=== PATIENT | female | born 1925 | race Caucasian/White ===

== ENCOUNTER 2016-07-19 17:56 | Inpatient (IN) | payer MEDICARE, BC ==
[2016-07-19] MEDS ORDERED: HYDROmorphone 2 MG/ML SDV IM ONE (18:04)
--- NOTE | 2016-07-19 18:08 | EDM.PDOC ---
ED HPI HEAD INJURY - General Chief Complaint: Trauma Stated Complaint: FALL, FACIAL INJURIES Time Seen by Provider: 07/19/16 18:00 Source: Reports: Patient, EMS, EMS notes reviewed History Limitations: Reports: No limitations - History of Present Illness INITIAL COMMENTS - FREE TEXT/NARRATIVE: Elisabeth lost her balance at 3 pm this afternoon, falling against a fixture on the wall, striking the L face. There was no LOC. There has been progressive swelling and discoloration of the L periorbital tissues, possibly secondary to Plavix. 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 She summoned EMS who transferred to [facility] ED for assessment. - Related Data Allergies/ADRs: Allergies Allergy/AdvReac Type Severity Reaction Status Date / Time No Known Allergies Allergy Verified 07/19/16 18:05 Home Meds: Home Meds ALPRAZolam [Alprazolam] 0.25 mg PO BID PRN 11/04/15 [History] Aspirin [Ecotrin] 81 mg PO DAILY 11/04/15 [History] Clopidogrel Bisulfate [Clopidogrel] 75 mg PO DAILY 11/04/15 [History] Cranberry Conc/Ascorbic Acid [Cranberry Plus Vitamin C Sftgl] 300 mg PO DAILY [History] Insulin Glarg,Human.Rec.Analog [LantUS Solostar] 25 unit SUBCUT BEDTIME [History] Lisinopril 15 mg PO DAILY 11/04/15 [History] Metoprolol Tartrate 25 mg PO BID 11/04/15 [History] Omeprazole 20 mg PO DAILY 11/04/15 [History] traMADol [Ultram] 50 - 100 mg PO BID 11/04/15 [History] Acetaminophen/HYDROcodone [[place] 325-5 MG] 1 tab PO Q4HR PRN 07/19/16 [History] FLUoxetine HCl [Fluoxetine] 1 tab PO DAILY 07/19/16 [History] Ferrous Sulfate [Iron] 325 mg PO DAILY 07/19/16 [History] Methylcellulose (with Sugar) [Citrucel] 454 gm PO DAILY 07/19/16 [History] Multivitamin [Multi-Vitamin Daily] 1 each PO DAILY 07/19/16 [History] Nitroglycerin [Nitrostat] 0.4 mg SL ASDIRECTED PRN 07/19/16 [History] Polyethylene Glycol 3350 [Miralax] 17 gm PO DAILY 07/19/16 [History] Past Medical History HEENT History: Reports: Impaired vision Cardiovascular History: Reports: High cholesterol, Hypertension, [place], Stents Gastrointestinal History: Reports: Chronic constipation Genitourinary History: Reports: UTI, recurrent [employer] History: Reports: Musculoskeletal History: Reports: Osteoarthritis Endocrine/Metabolic History: Reports: Diabetes, type II - Infectious Disease History Infectious Disease History: Reports: Chicken pox, Measles, Mumps - Past Surgical History Cardiovascular Surgical History: Reports: Carotid stents Social & Family History - Family History Family Medical History: Noncontributory - Tobacco Use Smoking Status *Q: Former Smoker Years of Tobacco use: 25 - Recreational Drug Use Recreational Drug Use: No ED ROS GENERAL - Review of Systems Review Of Systems: See Below Constitutional: Reports: malaise HEENT: Reports: Eye pain (left side) Respiratory: Reports: No Symptoms Cardiovascular: Reports: No symptoms Endocrine: Reports: no symptoms GI/Abdominal: Reports: No symptoms : Reports: no symptoms Musculoskeletal: Reports: other (L facial tenderness and pain ) Skin: Reports: bruising (L periorbital tissues) Neurological: Reports: Gait Disturbance (has lost balance and fallen in the past ) Psychiatric: Reports: No symptoms Hematologic/Lymphatic: Reports: easy bruising (Plavix) Immunologic: Reports: no symptoms ED EXAM, HEAD INJURY - Physical Exam Exam: See Below Exam Limited By: No limitations General Appearance: alert, WD/WN, mild distress Head: facial ecchymosis, facial swelling, facial tenderness Eyes: left eye: other (due to periorbital swelling and ecchymoses, unable to open lid for inspection of globe) Ears: normal external exam, hearing loss Nose: normal inspection, no blood Throat/Mouth: Normal inspection, Normal lips, Normal oropharynx, Normal voice Neck: non-tender, full range of motion, normal alignment, normal inspection Respiratory: lungs clear Cardiovascular: regular rate, rhythm, no murmur GI/Abdominal Exam (Abbreviated): normal bowel sounds, non tender, no organomegaly, no distention, no mass (Female) Exam: Deferred Rectal (Female) Exam: Deferred Back Exam: normal inspection Extremities: no evidence of injury Neurologic: no motor/sensory deficits, normal mood/affect, oriented x 3 Skin: Ecchymosis (L face) Course - Vital Signs Text/Narrative:: Following assessment at the [facility] ED, I administered Dilaudid 1 mg IM, and sent Elisabeth to [facility] for a Head Ct w orbits: preseptal hematoma noted , no fx seen, orbit appears intact; no intracranial trauma or bleeding identified; CBC noting Hgb 13.1 gm, WBC 16,900, plts 329,000; Na 124, K 3.9, Cl 93; BUN 16, Cr 0.7, nonFBS 219 mg%. Elisabeth has some clinical features for a concussion, with low Na and HBP and will be admitted for observation. Last Recorded V/S: Last Vital Signs Temp 36.9 C 07/19/16 17:56 Pulse 60 07/19/16 17:56 Resp 18 07/19/16 17:56 BP 255/79 H 07/19/16 17:56 Pulse Ox 98 07/19/16 17:56 - Orders/Labs/Meds Orders: Active Orders 24 hr Category Date Time Status Patient Status Manage Transfer [TRANSFER] Routine ADT 07/19/16 19:52 Ordered Cardiac Monitoring [RC] .As Directed Care 07/19/16 19:52 Ordered Head wo Cont [CT] Stat Exams 07/19/16 18:03 Taken Orbit Sella PF IAC w Cont [CT] Stat Exams 07/19/16 18:39 Taken URINALYSIS W/MICROSCOPIC [UA W/MICROSCOPIC] [URIN] Stat Lab 07/19/16 18:03 Uncollected Sodium Chloride 0.9% [Normal Saline] 1,000 ml Med 07/19/16 20:00 Active IV ASDIRECTED Sodium Chloride 0.9% [Saline Flush] Med 07/19/16 19:48 Active 10 ml FLUSH ASDIRECTED PRN Peripheral IV Insertion Adult [OM.PC] Routine Oth 07/19/16 19:48 Ordered Medication Orders Sodium Chloride (Normal Saline) 1,000 mls @ 150 mls/hr IV ASDIRECTED NAZIA Sodium Chloride (Saline Flush) 10 ml FLUSH ASDIRECTED PRN PRN Reason: Keep Vein Open Labs: Laboratory Tests 07/19/16 07/19/16 Range/Units 18:40 18:40 WBC 16.9 H (4.5-12.0) X10-3/uL RBC 4.44 (3.23-5.20) x10(6)uL Hgb 13.1 (11.5-15.5) g/dL Hct 39.7 (30.0-51.3) % MCV 89.6 (80-96) fL MCH 29.5 (27.7-33.6) pg MCHC 33.0 (32.2-35.4) g/dL RDW 13.9 (11.5-15.5) % Plt Count 329 (125-369) X10(3)uL MPV 7.1 L (7.4-10.4) fL Neut % (Auto) 84.2 H (46-82) % Lymph % (Auto) 10.5 L (13-37) % [place] % (Auto) 4.3 (4-12) % Eos % (Auto) 1 (1.0-5.0) % Baso % (Auto) 1 (0-2) % Neut # (Auto) 14.2 H (1.6-8.3) # Lymph # (Auto) 1.8 (0.6-5.0) # [place] # (Auto) 0.7 (0.0-1.3) # Eos # (Auto) 0.1 (0.0-0.8) # Baso # (Auto) 0.1 (0.0-0.2) # Sodium 124 L (135-145) mmol/L Potassium 3.9 (3.5-5.3) mmol/L Chloride 93 L D (100-110) mmol/L Carbon Dioxide 23 (23-29) mmol/L BUN 16 (8-23) mg/dL Creatinine 0.7 (0.6-1.3) mg/dL Est Cr Clr Drug Dosing TNP Estimated GFR (MDRD) > 60 (>60) BUN/Creatinine Ratio 22.9 H (9-20) Glucose 219 H (80-116) mg/dL Calcium 8.9 (8.6-10.2) mg/dL Meds: Medications Generic Name Dose Route Start Last Admin Trade Name Freq PRN Reason Stop Dose Admin Sodium Chloride 1,000 mls @ 150 mls/hr 07/19/16 20:00 Normal Saline IV ASDIRECTED NAZIA Sodium Chloride 10 ml 07/19/16 19:48 Saline Flush FLUSH ASDIRECTED PRN Keep Vein Open Discontinued Medications Generic Name Dose Route Start Last Admin Trade Name Lor PRN Reason Stop Dose Admin Hydromorphone HCl 1 mg 07/19/16 18:04 07/19/16 18:22 Dilaudid IM 07/19/16 18:05 1 mg ONETIME ONE Administration Departure - Departure Time of Disposition: 20:00 Disposition: Refer to Observation Condition: fair Clinical Impression: Labile hypertension, Hyponatremia Concussion Qualifiers: Encounter type: initial encounter Loss of consciousness presence/duration: without LOC Qualified Code(s): S06.0X0A - Concussion without loss of consciousness, initial encounter - Problem List & Annotations (1) Concussion SNOMED Code(s): 019576812 Code(s): S06.0X9A - CONCUSSION W LOSS OF CONSCIOUSNESS OF UNSP DURATION, INIT Status: Acute Current Visit: Yes Annotation/Comment:: MANAGER CODING monitoring Qualifiers: Encounter type: initial encounter Loss of consciousness presence/duration: without LOC Qualified Code(s): S06.0X0A - Concussion without loss of consciousness, initial encounter (2) Hyponatremia SNOMED Code(s): 60699095 Code(s): E87.1 - HYPO-OSMOLALITY AND HYPONATREMIA Status: Acute Current Visit: Yes Annotation/Comment:: Hyponatremia managed with NS infusion (3) Labile hypertension SNOMED Code(s): 00662325555568683 Code(s): I10 - ESSENTIAL (PRIMARY) HYPERTENSION Status: Acute Current Visit: Yes Annotation/Comment:: Hypertension possibly secondary to head injury will require monitoring and may intervention if unimproved. - Problem List Review Problem List Initiated/Reviewed/Updated: Yes - My Orders Last 24 Hours: My Active Orders 07/19/16 18:03 Head wo Cont [CT] Stat URINALYSIS W/MICROSCOPIC [UA W/MICROSCOPIC] [URIN] Stat 07/19/16 18:39 Orbit Sella PF IAC w Cont [CT] Stat 07/19/16 19:48 Sodium Chloride 0.9% [Saline Flush] 10 ml FLUSH ASDIRECTED PRN Peripheral IV Insertion Adult [OM.PC] Routine 07/19/16 19:52 Patient Status Manage Transfer [TRANSFER] Routine Cardiac Monitoring [RC] .As Directed 07/19/16 20:00 Sodium Chloride 0.9% [Normal Saline] 1,000 ml IV ASDIRECTED - Assessment/Plan Last 24 Hours: My Active Orders 07/19/16 18:03 Head wo Cont [CT] Stat URINALYSIS W/MICROSCOPIC [UA W/MICROSCOPIC] [URIN] Stat 07/19/16 18:39 Orbit Sella PF IAC w Cont [CT] Stat 07/19/16 19:48 Sodium Chloride 0.9% [Saline Flush] 10 ml FLUSH ASDIRECTED PRN Peripheral IV Insertion Adult [OM.PC] Routine 07/19/16 19:52 Patient Status Manage Transfer [TRANSFER] Routine Cardiac Monitoring [RC] .As Directed 07/19/16 20:00 Sodium Chloride 0.9% [Normal Saline] 1,000 ml IV ASDIRECTED Plan: Admit to observation.
[2016-07-19] MEDS ORDERED: Sodium Chloride 0.9% 10 ML Syringe FLUSH PRN (19:48)
[2016-07-19] MEDS ORDERED: HYDROmorphone 2 MG/ML SDV IVPUSH ONE (19:56)
[2016-07-19] MEDS ORDERED: Labetalol 100 MG/20 ML MDV IVPUSH ONE (20:21)
[2016-07-19] MEDS: Sodium Chloride 0.9% 1,000 ML IV SCH (20:26)
[2016-07-19] MEDS ORDERED: Labetalol 20 MG/4 ML Syringe ONE (20:59)
[2016-07-20] MEDS: Sodium Chloride 0.9% 1,000 ML IV SCH ×3 (02:47→22:12)
[2016-07-20] MEDS: Acetaminophen 325 MG Tab PO PRN ×3 (06:01→17:10)
--- NOTE | 2016-07-20 08:56 | PCM.HP ---
H&P History of Present Illness - General Date of Service: 07/20/16 Admit Problem/Dx: Admission Diagnosis/Problem Admission Diagnosis/Problem Concussion with no loss of consciousness Source of Information: Patient History Limitations: Reports: No limitations - History of Present Illness Initial Comments - Free Text/Narative: This is an 89-year-old female patient that is a resident of [facility]. She states she was walking behind her wheelchair and her knee gave out and she fell down on the floor and hit her face on a box. This happened at 3 PM. The assistance came to evaluate her and then called the ambulance at 5 PM. They brought her to the ER here at [place]. She states that her neck is sore. She felt nauseated last night but that's better this morning. She cannot see out of her left eye due to swelling. She states her body aches all over and that's normal for her. Her left knee hurts but that stopped in the fall it's chronic. And it gives out on her. She denies chest pain, palpitations, shortness of breath, cough, dysuria, pyuria or hematuria. She denies fevers or chills. all over body Pain Score (Numeric/FACES): 7 - Related Data Allergies/Adverse Reactions: Allergies Allergy/AdvReac Type Severity Reaction Status Date / Time No Known Allergies Allergy Verified 07/19/16 18:05 Home Medications: Home Meds ALPRAZolam [Alprazolam] 0.25 mg PO BID PRN 11/04/15 [History] Aspirin [Ecotrin] 81 mg PO DAILY 11/04/15 [History] Clopidogrel Bisulfate [Clopidogrel] 75 mg PO DAILY 11/04/15 [History] Cranberry Conc/Ascorbic Acid [Cranberry Plus Vitamin C Sftgl] 300 mg PO DAILY [History] Insulin Glarg,Human.Rec.Analog [LantUS Solostar] 25 unit SUBCUT BEDTIME [History] Lisinopril 15 mg PO DAILY 11/04/15 [History] Metoprolol Tartrate 25 mg PO BID 11/04/15 [History] Omeprazole 20 mg PO DAILY 11/04/15 [History] traMADol [Ultram] 50 - 100 mg PO BID 11/04/15 [History] FLUoxetine HCl [Fluoxetine] 10 mg PO DAILY 07/19/16 [History] Ferrous Sulfate [Iron] 325 mg PO DAILY 07/19/16 [History] Methylcellulose (with Sugar) [Citrucel] 1 tbsp PO DAILY 07/19/16 [History] Multivitamin [Multi-Vitamin Daily] 1 each PO DAILY 07/19/16 [History] Nitroglycerin [Nitrostat] 0.4 mg SL Q5M PRN 07/19/16 [History] Polyethylene Glycol 3350 [Miralax] 17 gm PO DAILY 07/19/16 [History] Acetaminophen 325 mg PO BEDTIME 07/20/16 [History] Acetaminophen [Tylenol] 650 mg PO Q4H PRN 07/20/16 [History] Acetaminophen/traMADol [Ultracet] 2 tab PO TID 07/20/16 [History] Magnesium Hydroxide [Milk of Magnesia] 15 ml PO DAILY PRN 07/20/16 [History] Menthol [Ice Blue Gel] 1 applic TOP ASDIRECTED 07/20/16 [History] Past Medical History HEENT History: Reports: Hard of hearing, Impaired vision Cardiovascular History: Reports: High cholesterol, Hypertension, [place], Stents Gastrointestinal History: Reports: Chronic constipation Genitourinary History: Reports: UTI, recurrent GI ASST History: Reports: Musculoskeletal History: Reports: Osteoarthritis Endocrine/Metabolic History: Reports: Diabetes, type II - Infectious Disease History Infectious Disease History: Reports: Chicken pox, Measles, Mumps - Past Surgical History Cardiovascular Surgical History: Reports: Carotid stents Female Surgical History: Reports: Hysterectomy Social & Family History - Family History Family Medical History: Noncontributory - Tobacco Use Smoking Status *Q: Former Smoker Years of Tobacco use: 25 Second Hand Smoke Exposure: No - Caffeine Use Caffeine Use: Reports: Coffee - Recreational Drug Use Recreational Drug Use: No H&P Review of Systems - Review of Systems: Review Of Systems: See Below General: Reports: no symptoms HEENT: Denies: ear pain, headaches, rhinitis, sore throat Pulmonary: Reports: No Symptoms Cardiovascular: Reports: no symptoms Gastrointestinal: Reports: No symptoms Genitourinary: Reports: no symptoms Musculoskeletal: Reports: neck pain, leg pain, joint pain. Denies: joint swelling Skin: Reports: bruising Psychiatric: Reports: depression (Says she feels depressed occasionally. Not today) Neurological: Reports: No Symptoms Hematologic/Lymphatic: Reports: no symptoms Immunologic: Reports: no symptoms Exam - Exam Exam: See Below - Vital Signs Vital Signs: Last Vital Signs Temp 98 F 07/20/16 01:05 Pulse 60 07/20/16 05:35 Resp 18 07/20/16 05:35 BP 150/61 H 07/20/16 05:35 Pulse Ox 94 L 07/20/16 05:35 Weight: 146 lb - Exam General: alert, oriented HEENT: PERRLA, Hearing intact, Mucosa moist & pink, Posterior pharynx clear, Pupils equal, Contact lenses Neck: supple, trachea midline. No: carotid bruit, JVD Lungs: Clear to auscultation, Normal respiratory effort. No: Crackles, Rales, Rhonchi Cardiovascular: regular rate, regular rhythm Abdomen: normal bowel sounds, soft. No: organomegaly, guarding, rigidity, rebound, tenderness Back Exam: normal inspection, full range of motion Extremities: normal inspection, other (Normal strength upper and lower extremities. Normal range of motion left knee.). No: edema Skin: ecchymosis (Around both eyes with swelling. Left forehead.) Neurological: strength equal bilateral, normal speech, normal tone, other (She walks with a walker but has some coordination problems.) Neuro Extensive - Mental Status: alert, oriented x3, normal mood/affect, normal cognition Neuro Extensive - Motor, Sensory, Reflexes: No: normal gait Psychiatric: alert, normal affect, normal mood - Patient Data Lab Results last 24 hrs: Laboratory Results - last 24 hr 07/19/16 07/19/16 07/20/16 Range/Units 20:00 21:24 06:18 Sodium 128 L (135-145) mmol/L Potassium 4.1 (3.5-5.3) mmol/L Chloride 97 L (100-110) mmol/L Carbon Dioxide 24 (23-29) mmol/L BUN 18 (8-23) mg/dL Creatinine 0.9 (0.6-1.3) mg/dL Est Cr Clr Drug Dosing 33.52 mL/min Estimated GFR (MDRD) 59 L (>60) BUN/Creatinine Ratio 20.0 (9-20) Glucose 211 H (80-116) mg/dL POC Glucose 228 H (80-116) mg/dL Calcium 8.4 L (8.6-10.2) mg/dL Urine Color Yellow (YELLOW) Urine Appearance Clear (CLEAR) Urine pH 7.0 H (5.0-6.5) Ur Specific [place] 1.010 (1.010-1.025) Urine Protein 30 H (NEGATIVE) mg/dL Urine Glucose (UA) 250 H (NEGATIVE) mg/dL Urine Ketones Negative (NEGATIVE) mg/dL Urine Occult Blood Moderate H (NEGATIVE) Urine Nitrite Negative (NEGATIVE) Urine Bilirubin Negative (NEGATIVE) Urine Urobilinogen Normal (NEGATIVE) mg/dL Ur Leukocyte Esterase Negative (NEGATIVE) Urine RBC 0-5 (0) Urine WBC 0-5 (0) Result Diagrams: 07/19/16 18:40 07/20/16 06:18 *Q Meaningful Use (ADM) - VTE *Q VTE Criteria *Q: - Stroke *Q Stroke Criteria *Q: - AMI *Q AMI Criteria *Q: - Problem List (1) Hypertension SNOMED Code(s): 92312552 ICD Code: I10 - ESSENTIAL (PRIMARY) HYPERTENSION Status: Acute Current Visit: Yes (2) Coordination abnormal SNOMED Code(s): 355536874 ICD Code: R27.8 - OTHER LACK OF COORDINATION Status: Acute Current Visit : Yes (3) Concussion SNOMED Code(s): 503806871 ICD Code: S06.0X9A - CONCUSSION W LOSS OF CONSCIOUSNESS OF UNSP DURATION, INIT Status: Acute Current Visit: Yes Problem Details: [employer] CLERK monitoring Qualifiers: Encounter type: initial encounter Loss of consciousness presence/duration: without LOC Qualified Code(s): S06.0X0A - Concussion without loss of consciousness, initial encounter (4) Hyponatremia SNOMED Code(s): 48957705 ICD Code: E87.1 - HYPO-OSMOLALITY AND HYPONATREMIA Status: Acute Current Visit: Yes Problem Details: Hyponatremia managed with NS infusion (5) Facial contusion SNOMED Code(s): 224324193 ICD Code: S00.83XA - CONTUSION OF OTHER PART OF HEAD, INITIAL ENCOUNTER Status: Acute Current Visit: No Problem List Initiated/Reviewed/Updated: Yes Orders Last 24hrs: Active Orders 24 hr Category Date Time Status Accu Check [Blood Glucose Check, Bedside] [RC] BIDMEALS Care 07/20/16 08:51 Ordered Up With Assistance [RC] ASDIRECTED Care 07/20/16 08:48 Ordered Consistent Carbohydrate Diet [DIET] Diet 07/20/16 Lunch Ordered Cervical Spine Comp w Obliques [CR] Routine Exams 07/20/16 08:48 Ordered ALPRAZolam [Xanax] Med 07/20/16 08:49 Ordered 0.25 mg PO BID PRN Acetaminophen [Tylenol] Med 07/20/16 05:49 Active 650 mg PO Q4H PRN Cranberry Conc/Ascorbic Acid [Cranberry Plus Vitamin C Med 07/20/16 09:00 Ordered Sftgl] 300 mg PO DAILY Ferrous Sulfate Med 07/20/16 09:00 Ordered 325 mg PO DAILY Insulin Glarg,Human.Rec.Analog [Lantus Solostar] Med 07/20/16 21:00 Ordered 25 unit SUBCUT BEDTIME Lisinopril [Prinivil] Med 07/20/16 09:00 Ordered 15 mg PO DAILY Metoprolol Tartrate [Lopressor] Med 07/20/16 09:00 Ordered 25 mg PO BID Multivitamins [Tab-A-Garima] Med 07/20/16 09:00 Ordered 1 each PO DAILY Omeprazole Med 07/20/16 09:00 Ordered 20 mg PO DAILY Polyethylene Glycol 3350 [MiraLAX] Med 07/20/16 09:00 Ordered 17 gm PO DAILY traMADol [Ultram] Med 07/20/16 09:00 Ordered 50 mg PO BID Resuscitation Status Routine Resus Stat 07/20/16 08:46 Ordered Medication Orders Acetaminophen (Tylenol) 650 mg PO Q4H PRN PRN Reason: Pain Last Admin: 07/20/16 06:01 Dose: 650 mg Alprazolam (Xanax) 0.25 mg PO BID PRN PRN Reason: Anxiety Ferrous Sulfate (Ferrous Sulfate) 325 mg PO DAILY NAZIA Sodium Chloride (Normal Saline) 1,000 mls @ 75 mls/hr IV ASDIRECTED NAZIA Last Admin: 07/20/16 02:47 Dose: 150 mls/hr Infusion: 07/20/16 02:47 Dose: 150 mls/hr Admin: 07/19/16 20:26 Dose: 150 mls/hr Lisinopril (Prinivil) 15 mg PO DAILY NAZIA Metoprolol Tartrate (Lopressor) 25 mg PO BID [facility] Multivitamins/Minerals/Vitamin C (Tab-A-Garima) tab PO DAILY NAZIA Non-Formulary Medication (Cranberry Conc/Ascorbic Acid [Cranberry Plus Vitamin C Sftgl]) 300 mg PO DAILY NAZIA Non-Formulary Medication (Insulin Glarg,Human.Rec.Analog [Lantus Solostar]) 25 unit SUBCUT BEDTIME NAZIA Omeprazole (Omeprazole) 20 mg PO DAILY NAZIA Polyethylene Glycol (Miralax) 17 gm PO DAILY [facility] Sodium Chloride (Saline Flush) 10 ml FLUSH ASDIRECTED PRN PRN Reason: Keep Vein Open Last Admin: 07/19/16 20:24 Dose: 10 ml Tramadol HCl (Ultram) 50 mg PO BID [facility] Assessment/Plan Comment:: 1. Admit for observation. 2. Telemetry was started on admission and I will DC it now. 3. Normal saline 150 mL an hour. I decreased it to 75 mL an hour this morning. 4. Monitor sodium 5. Discussed CODE STATUS. She wants to be a DO NOT RESUSCITATE/DO NOT INTUBATE. 6. Diabetic diet with Accu-Cheks twice a day. 7. PT/OT. 8 Continue current medicines except for her Plavix and aspirin because of the ecchymosis on her eyes.
[2016-07-20] MEDS: Ferrous Sulfate 325 MG Tab PO SCH (11:01)
[2016-07-20] MEDS: Metoprolol Tartrate 25 MG Tab PO SCH ×2 (11:01→21:53)
[2016-07-20] MEDS: Polyethylene Glycol 3350 Powder 17 GM Packet PO SCH (11:01)
[2016-07-20] MEDS: Omeprazole 20 MG Cap.CR PO SCH (11:01)
[2016-07-20] MEDS: Lisinopril 10 MG Tab PO SCH (11:02)
[2016-07-20] MEDS: Lisinopril 5 MG Tab PO SCH (11:02)
[2016-07-20] MEDS: traMADol 50 MG Tab PO SCH ×2 (11:02→21:53)
[2016-07-20] MEDS: Multivitamin Tab PO SCH (11:02)
[2016-07-20] MEDS: Cranberry 500 MG Cap PO SCH (11:03)
--- NOTE | 2016-07-20 11:08 | PCM.SN ---
- Free Text/Narrative Note: I ordered a neck CT today which showed a nondisplaced type II odontoid fracture. I placed a hard collar on immediately and then called neurosurgery. The neurosurgeon stated that surgery is very hard because of osteoporosis at her age. He reviewed the x-rays and recommended a hard collar all the time. He stated for showers. She could remain still and remove the hard collar and put a [place] collar which is Matthew for the shower. Then, the shower and take the [place] collar off and to inspect the hard collar on. They would like to see her outpatient. I will put the referral in our clinic chart/peptic.
[2016-07-20] MEDS ORDERED: Magnesium Hydroxide 400 MG/5 ML Susp 30 ML Cup PO PRN (16:24)
[2016-07-20] MEDS ORDERED: Nitroglycerin 0.4 MG Tab.SL SL PRN (16:24)
[2016-07-20] MEDS ORDERED: Acetaminophen 325 MG Tab PO PRN (16:24)
[2016-07-20] MEDS ORDERED: Triamcinolone Acetonide 0.025% Crm 15 GM Tube TOP PRN ×2 (17:03→17:19)
[2016-07-20] MEDS ORDERED: ACETAMINOPHEN PO SCH (21:00)
[2016-07-20] MEDS ORDERED: TRAMADOL PO SCH (21:00)
[2016-07-20] MEDS: Insulin Detemir 100 Units/ML 3 ML Pen SUBCUT SCH (21:45)
[2016-07-20] MEDS: MENTHOL TOP PRN (22:15)
[2016-07-21] MEDS: Acetaminophen 325 MG Tab PO PRN (02:52)
[2016-07-21] MEDS: MENTHOL TOP PRN ×2 (02:54→09:10)
[2016-07-21] MEDS: Omeprazole 20 MG Cap.CR PO SCH (06:49)
[2016-07-21] MEDS: Cranberry 500 MG Cap PO SCH (08:54)
[2016-07-21] MEDS: Ferrous Sulfate 325 MG Tab PO SCH (08:54)
--- NOTE | 2016-07-21 08:54 | PCM.PN ---
- General Info Date of Service: 07/21/16 Admission Dx/Problem (Free Text): The patient feels more comfortable with a neck brace on. Less pain. She has more pain in her right hip and right knee today and just generally sore from the fall. She states the swelling around her eyes is a little improved. She denies chest pain, shortness of breath. - Patient Data Vitals - most recent: Last Vital Signs Temp 98.3 F 07/20/16 20:00 Pulse 54 L 07/20/16 21:53 Resp 18 07/21/16 00:00 BP 192/69 H 07/20/16 21:53 Pulse Ox 97 07/20/16 20:00 Weight - most recent: 146 lb I&O - last 24 hours: Intake & Output 07/20/16 07/21/16 07/21/16 22:59 06:59 14:59 Intake Total 814 Balance 814 Lab Results last 24 hrs: Laboratory Results - last 24 hr 07/20/16 07/21/16 07/21/16 Range/Units 17:03 06:35 06:35 WBC 8.6 (4.5-12.0) X10-3/uL RBC 3.60 (3.23-5.20) x10(6)uL Hgb 11.0 L (11.5-15.5) g/dL Hct 32.3 (30.0-51.3) % MCV 89.7 (80-96) fL MCH 30.6 (27.7-33.6) pg MCHC 34.1 (32.2-35.4) g/dL RDW 13.9 (11.5-15.5) % Plt Count 273 (125-369) X10(3)uL MPV 7.3 L (7.4-10.4) fL Neut % (Auto) 63.7 (46-82) % Lymph % (Auto) 25.5 (13-37) % Summers % (Auto) 7.9 (4-12) % Eos % (Auto) 3 (1.0-5.0) % Baso % (Auto) 0 (0-2) % Neut # (Auto) 5.4 (1.6-8.3) # Lymph # (Auto) 2.2 (0.6-5.0) # Summers # (Auto) 0.7 (0.0-1.3) # Eos # (Auto) 0.2 (0.0-0.8) # Baso # (Auto) 0.0 (0.0-0.2) # Sodium 132 L (135-145) mmol/L Potassium 4.1 (3.5-5.3) mmol/L Chloride 101 (100-110) mmol/L Carbon Dioxide 26 (23-29) mmol/L BUN 10 (8-23) mg/dL Creatinine 0.7 (0.6-1.3) mg/dL Est Cr Clr Drug Dosing 43.09 mL/min Estimated GFR (MDRD) > 60 (>60) BUN/Creatinine Ratio 14.3 (9-20) Glucose 224 H (80-116) mg/dL POC Glucose 219 H (80-116) mg/dL Calcium 8.4 L (8.6-10.2) mg/dL Med Orders - Current: Current Medications Acetaminophen (Tylenol) 650 mg PO TID [facility] Alprazolam (Xanax) 0.25 mg PO BID PRN PRN Reason: Anxiety Cranberry (Cranberry) 500 mg PO DAILY [facility] Last Admin: 07/20/16 11:03 Dose: 500 mg Ferrous Sulfate (Ferrous Sulfate) 325 mg PO DAILY [facility] Last Admin: 07/20/16 11:01 Dose: 325 mg Fluoxetine HCl (Prozac) 10 mg PO DAILY [facility] Insulin Detemir (Levemir) 25 unit SUBCUT BEDTIME [facility] Last Admin: 07/20/16 21:45 Dose: 25 unit Lisinopril (Prinivil) 10 mg PO DAILY [facility] Last Admin: 07/20/16 11:02 Dose: 10 mg Lisinopril (Prinivil) 5 mg PO DAILY [facility] Last Admin: 07/20/16 11:02 Dose: 5 mg Magnesium Hydroxide (Milk Of Magnesia) 15 ml PO DAILY PRN PRN Reason: Constipation Methylcellulose (Soluble Fiber Therapy Powder) 0 gm PO DAILY [facility] Metoprolol Tartrate (Lopressor) 25 mg PO BID [facility] Last Admin: 07/20/16 21:53 Dose: 25 mg Multivitamins/Minerals/Vitamin C (Tab-A-Garima) 1 tab PO DAILY [facility] Last Admin: 07/20/16 11:02 Dose: 1 tab Nitroglycerin (Nitrostat) 0.4 mg SL Q5M PRN PRN Reason: Chest Pain Menthol [Ice Blue (Gel] Own Med ) 1 applic TOP TID PRN PRN Reason: Pain Last Admin: 07/21/16 02:54 Dose: 1 applic Omeprazole (Omeprazole) 20 mg PO DAILY@0600 [facility] Last Admin: 07/21/16 06:49 Dose: 20 mg Polyethylene Glycol (Miralax) 17 gm PO DAILY [facility] Last Admin: 07/20/16 11:01 Dose: 17 gm Tramadol HCl (Ultram) 50 mg PO TID [facility] Discontinued Medications Acetaminophen (Tylenol) 650 mg PO Q4H PRN PRN Reason: Pain Last Admin: 07/21/16 02:52 Dose: 650 mg Acetaminophen (Tylenol) 650 mg PO Q4H PRN PRN Reason: Pain Hydromorphone HCl (Dilaudid) 1 mg IM ONETIME ONE Stop: 07/19/16 18:05 Last Admin: 07/19/16 18:22 Dose: 1 mg Hydromorphone HCl (Dilaudid) 1 mg IVPUSH ONETIME ONE Stop: 07/19/16 19:57 Last Admin: 07/19/16 20:28 Dose: 1 mg Sodium Chloride (Normal Saline) 1,000 mls @ 75 mls/hr IV ASDIRECTED [facility] Last Admin: 07/20/16 22:12 Dose: 75 mls/hr Labetalol HCl (Normodyne) 10 mg IVPUSH ONETIME ONE PRN Reason: Protocol Stop: 07/19/16 20:22 Last Admin: 07/19/16 21:12 Dose: 10 mg Labetalol HCl (Normodyne) Confirm Administered Dose 20 mg .ROUTE .STK-MED ONE Stop: 07/19/16 21:00 Last Admin: 07/19/16 21:12 Dose: Not Given Non-Formulary Medication (Acetaminophen/Tramadol [Ultracet]) 2 tab PO TID [facility] Sodium Chloride (Saline Flush) 10 ml FLUSH ASDIRECTED PRN PRN Reason: Keep Vein Open Last Admin: 07/19/16 20:24 Dose: 10 ml Tramadol HCl (Ultram) 50 mg PO BID [facility] Last Admin: 07/20/16 21:53 Dose: 50 mg Triamcinolone Acetonide (Triamcinolone Acetonide 0.025%) 1 gm TOP BID PRN PRN Reason: Rash - Exam General: alert, oriented, cooperative Neck: supple Lungs: Clear to auscultation, Normal respiratory effort. No: Crackles, Rales, Rhonchi Cardiovascular: Regular Rate, Regular Rhythm, No Murmurs Extremities: no edema, other (Right knee and right hip exam completely normal) Skin: ecchymosis (Face and around the eyes.) Neurological: normal speech, other (She can walk with a walker but he does a little cyst because she stumbles.) Psy/Mental Status: alert, normal affect, normal mood - Problem List & Annotations (1) Hypertension SNOMED Code(s): 49220280 Code(s): I10 - ESSENTIAL (PRIMARY) HYPERTENSION Status: Acute Current Visit: Yes (2) Coordination abnormal SNOMED Code(s): 035858873 Code(s): R27.8 - OTHER LACK OF COORDINATION Status: Acute Current Visit: Yes (3) Concussion SNOMED Code(s): 882816883 Code(s): S06.0X9A - CONCUSSION W LOSS OF CONSCIOUSNESS OF UNSP DURATION, INIT Status: Acute Current Visit: Yes Qualifiers: Encounter type: initial encounter Loss of consciousness presence/duration: without LOC Qualified Code(s): S06.0X0A - Concussion without loss of consciousness, initial encounter Annotation/Comment:: BOWL TURNER monitoring (4) Hyponatremia SNOMED Code(s): 87770048 Code(s): E87.1 - HYPO-OSMOLALITY AND HYPONATREMIA Status: Acute Current Visit: Yes Annotation/Comment:: Hyponatremia managed with NS infusion (5) Facial contusion SNOMED Code(s): 277612156 Code(s): S00.83XA - CONTUSION OF OTHER PART OF HEAD, INITIAL ENCOUNTER Status: Acute Current Visit: No (6) Odontoid fracture SNOMED Code(s): 078324330 Code(s): S12.100A - UNSP DISP FX OF SECOND CERVICAL VERTEBRA, INIT FOR CLOS FX Status: Acute Current Visit: Yes Qualifiers: Encounter type: initial encounter Fracture type: closed Qualified Code(s) : S12.100A - Unspecified displaced fracture of second cervical vertebra, initial encounter for closed fracture Annotation/Comment:: Nondisplaced type II - Problem List Review Problem List Initiated/Reviewed/Updated: Yes - My Orders Last 24 Hours: My Active Orders 07/20/16 09:00 Lisinopril [Prinivil] 5 mg PO DAILY 07/20/16 09:09 Consult to Mail Clerk [CONS] Routine 07/20/16 09:20 Cervical Spine wo Cont [CT] Routine 07/20/16 09:58 C Collar Applied [Spinal Immobilization] [RC] 08,16,00 07/20/16 16:24 Magnesium Hydroxide [Milk of Magnesia] 15 ml PO DAILY PRN Nitroglycerin [Nitrostat] 0.4 mg SL Q5M PRN 07/20/16 16:55 Menthol [Ice Blue Gel] 1 applic TOP TID PRN 07/21/16 08:50 Convert IV to Saline Lock [OM.PC] Routine 07/21/16 09:00 Acetaminophen [Tylenol] 650 mg PO TID FLUoxetine [PROzac] 10 mg PO DAILY Methylcellulose (with Sugar) [Soluble Fiber Therapy Powder] 0 gm PO DAILY traMADol [Ultram] 50 mg PO TID - Plan Plan:: 1. daughter states she takes the tramadol 3 times a day at home to control pain. 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 2. I discussed with the daughter that the [place] collar we didn't have at this time. We will try to get it this week so she can shower. 3. Her sodium is much improved so we'll stop her IV fluids and saline lock her IV. 4. PT/OT eval tomorrow. oil well services field supervisor consultation.
[2016-07-21] MEDS: Metoprolol Tartrate 25 MG Tab PO SCH ×2 (08:56→20:53)
[2016-07-21] MEDS: Polyethylene Glycol 3350 Powder 17 GM Packet PO SCH (08:57)
[2016-07-21] MEDS: Lisinopril 10 MG Tab PO SCH (08:57)
[2016-07-21] MEDS: Lisinopril 5 MG Tab PO SCH (08:57)
[2016-07-21] MEDS: FLUoxetine 10 MG Cap PO SCH (09:04)
[2016-07-21] MEDS: traMADol 50 MG Tab PO SCH ×3 (09:04→20:51)
[2016-07-21] MEDS: Acetaminophen 325 MG Tab PO SCH ×3 (09:04→20:54)
[2016-07-21] MEDS: Multivitamin Tab PO SCH (09:04)
[2016-07-21] MEDS: [UNRECOGNIZED DRUG - OTHER] PO SCH (11:26)
[2016-07-21] MEDS: METHYLCELLULOSE PO SCH (11:26)
[2016-07-21] MEDS: ALPRAZolam 0.25 MG Tab PO PRN (13:31)
[2016-07-21] MEDS: Insulin Detemir 100 Units/ML 3 ML Pen SUBCUT SCH (20:56)
[2016-07-22] MEDS: Omeprazole 20 MG Cap.CR PO SCH (05:11)
[2016-07-22] MEDS: Cranberry 500 MG Cap PO SCH (08:20)
[2016-07-22] MEDS: Ferrous Sulfate 325 MG Tab PO SCH (08:21)
[2016-07-22] MEDS: Metoprolol Tartrate 25 MG Tab PO SCH ×2 (08:21→20:15)
[2016-07-22] MEDS: Polyethylene Glycol 3350 Powder 17 GM Packet PO SCH (08:23)
[2016-07-22] MEDS: Lisinopril 10 MG Tab PO SCH (08:24)
[2016-07-22] MEDS: Lisinopril 5 MG Tab PO SCH (08:24)
[2016-07-22] MEDS: Multivitamin Tab PO SCH (08:25)
[2016-07-22] MEDS: FLUoxetine 10 MG Cap PO SCH (08:30)
[2016-07-22] MEDS: Acetaminophen 325 MG Tab PO SCH ×3 (08:30→20:13)
[2016-07-22] MEDS: traMADol 50 MG Tab PO SCH ×3 (08:30→20:14)
[2016-07-22] MEDS: METHYLCELLULOSE PO SCH ×2 (08:37→08:38)
[2016-07-22] MEDS: [UNRECOGNIZED DRUG - OTHER] PO SCH ×2 (08:37→08:38)
--- NOTE | 2016-07-22 09:48 | PCM.PN ---
- General Info Date of Service: 07/22/16 Admission Dx/Problem (Free Text): Elisabeth states she still has some right leg pain and neck pain. She says it's hard to take a deep breath but she's not short of breath and she doesn't have chest pain. - Patient Data Vitals - most recent: Last Vital Signs Temp 98.3 F 07/22/16 08:30 Pulse 73 07/22/16 08:30 Resp 16 07/22/16 08:30 BP 151/64 H 07/22/16 08:30 Pulse Ox 96 07/22/16 08:30 Weight - most recent: 146 lb I&O - last 24 hours: Intake & Output 07/21/16 07/22/16 07/22/16 22:59 06:59 14:59 Intake Total 200 Balance 200 Lab Results last 24 hrs: Laboratory Results - last 24 hr 07/21/16 07/21/16 07/21/16 Range/Units 10:53 17:30 20:45 POC Glucose 254 H 237 H 259 H (80-116) mg/dL 07/22/16 Range/Units 05:43 POC Glucose 110 D (80-116) mg/dL Med Orders - Current: Current Medications Acetaminophen (Tylenol) 650 mg PO TID [facility] Last Admin: 07/22/16 08:30 Dose: 650 mg Alprazolam (Xanax) 0.25 mg PO BID PRN PRN Reason: Anxiety Last Admin: 07/21/16 13:31 Dose: 0.25 mg Cranberry (Cranberry) 500 mg PO DAILY [facility] Last Admin: 07/22/16 08:20 Dose: 500 mg Ferrous Sulfate (Ferrous Sulfate) 325 mg PO DAILY [facility] Last Admin: 07/22/16 08:21 Dose: 325 mg Fluoxetine HCl (Prozac) 10 mg PO DAILY [facility] Last Admin: 07/22/16 08:30 Dose: 10 mg Insulin Detemir (Levemir) 25 unit SUBCUT BEDTIME [facility] Lisinopril (Prinivil) 10 mg PO DAILY [facility] Last Admin: 07/22/16 08:24 Dose: 10 mg Lisinopril (Prinivil) 5 mg PO DAILY [facility] Last Admin: 07/22/16 08:24 Dose: 5 mg Magnesium Hydroxide (Milk Of Magnesia) 15 ml PO DAILY PRN PRN Reason: Constipation Methylcellulose (Soluble Fiber Therapy Powder) 0 gm PO DAILY [facility] Last Admin: 07/22/16 08:38 Dose: 1 tbsp Metoprolol Tartrate (Lopressor) 25 mg PO BID [facility] Last Admin: 07/22/16 08:21 Dose: 25 mg Multivitamins/Minerals/Vitamin C (Tab-A-Garima) 1 tab PO DAILY [facility] Last Admin: 07/22/16 08:25 Dose: 1 tab Nitroglycerin (Nitrostat) 0.4 mg SL Q5M PRN PRN Reason: Chest Pain Menthol [Ice Blue (Gel] Own Med ) 1 applic TOP TID PRN PRN Reason: Pain Last Admin: 07/21/16 09:10 Dose: 1 applic Omeprazole (Omeprazole) 20 mg PO DAILY@0600 [facility] Last Admin: 07/22/16 05:11 Dose: 20 mg Polyethylene Glycol (Miralax) 17 gm PO DAILY [facility] Last Admin: 07/22/16 08:23 Dose: 17 gm Tramadol HCl (Ultram) 50 mg PO TID [facility] Last Admin: 07/22/16 08:30 Dose: 50 mg Discontinued Medications Acetaminophen (Tylenol) 650 mg PO Q4H PRN PRN Reason: Pain Last Admin: 07/21/16 02:52 Dose: 650 mg Acetaminophen (Tylenol) 650 mg PO Q4H PRN PRN Reason: Pain Hydromorphone HCl (Dilaudid) 1 mg IM ONETIME ONE Stop: 07/19/16 18:05 Last Admin: 07/19/16 18:22 Dose: 1 mg Hydromorphone HCl (Dilaudid) 1 mg IVPUSH ONETIME ONE Stop: 07/19/16 19:57 Last Admin: 07/19/16 20:28 Dose: 1 mg Sodium Chloride (Normal Saline) 1,000 mls @ 75 mls/hr IV ASDIRECTED [facility] Last Admin: 07/20/16 22:12 Dose: 75 mls/hr Insulin Detemir (Levemir) 25 unit SUBCUT BEDTIME [facility] Last Admin: 07/21/16 20:56 Dose: 25 unit Labetalol HCl (Normodyne) 10 mg IVPUSH ONETIME ONE PRN Reason: Protocol Stop: 07/19/16 20:22 Last Admin: 07/19/16 21:12 Dose: 10 mg Labetalol HCl (Normodyne) Confirm Administered Dose 20 mg .ROUTE .STK-MED ONE Stop: 07/19/16 21:00 Last Admin: 07/19/16 21:12 Dose: Not Given Methylcellulose (Soluble Fiber Therapy Powder) 0 gm PO DAILY [facility] Last Admin: 07/22/16 08:37 Dose: 1 tbsp Non-Formulary Medication (Acetaminophen/Tramadol [Ultracet]) 2 tab PO TID [facility] Sodium Chloride (Saline Flush) 10 ml FLUSH ASDIRECTED PRN PRN Reason: Keep Vein Open Last Admin: 07/19/16 20:24 Dose: 10 ml Tramadol HCl (Ultram) 50 mg PO BID [facility] Last Admin: 07/20/16 21:53 Dose: 50 mg Triamcinolone Acetonide (Triamcinolone Acetonide 0.025%) 1 gm TOP BID PRN PRN Reason: Rash - Exam General: alert, oriented, severe distress Lungs: Clear to auscultation, Normal respiratory effort. No: Rales, Rhonchi Cardiovascular: Regular Rate, Regular Rhythm. No: No Murmurs Extremities: no edema Skin: ecchymosis - Problem List & Annotations (1) Hypertension SNOMED Code(s): 88024195 Code(s): I10 - ESSENTIAL (PRIMARY) HYPERTENSION Status: Acute Current Visit: Yes (2) Coordination abnormal SNOMED Code(s): 826135266 Code(s): R27.8 - OTHER LACK OF COORDINATION Status: Acute Current Visit: Yes (3) Concussion SNOMED Code(s): 462193490 Code(s): S06.0X9A - CONCUSSION W LOSS OF CONSCIOUSNESS OF UNSP DURATION, INIT Status: Acute Current Visit: Yes Qualifiers: Encounter type: initial encounter Loss of consciousness presence/duration: without LOC Qualified Code(s): S06.0X0A - Concussion without loss of consciousness, initial encounter Annotation/Comment:: REWINDER OPERATOR monitoring (4) Hyponatremia SNOMED Code(s): 29158415 Code(s): E87.1 - HYPO-OSMOLALITY AND HYPONATREMIA Status: Acute Current Visit: Yes Annotation/Comment:: Hyponatremia managed with NS infusion (5) Facial contusion SNOMED Code(s): 233615283 Code(s): S00.83XA - CONTUSION OF OTHER PART OF HEAD, INITIAL ENCOUNTER Status: Acute Current Visit: No (6) Odontoid fracture SNOMED Code(s): 841571768 Code(s): S12.100A - UNSP DISP FX OF SECOND CERVICAL VERTEBRA, INIT FOR CLOS FX Status: Acute Current Visit: Yes Qualifiers: Encounter type: initial encounter Fracture type: closed Qualified Code(s) : S12.100A - Unspecified displaced fracture of second cervical vertebra, initial encounter for closed fracture Annotation/Comment:: Nondisplaced type II - Problem List Review Problem List Initiated/Reviewed/Updated: Yes - My Orders Last 24 Hours: My Active Orders 07/21/16 08:50 Convert IV to Saline Lock [OM.PC] Routine 07/21/16 09:00 Acetaminophen [Tylenol] 650 mg PO TID FLUoxetine [PROzac] 10 mg PO DAILY traMADol [Ultram] 50 mg PO TID 07/22/16 08:19 Insulin Detemir [Levemir] 25 unit SUBCUT BEDTIME 07/22/16 09:00 Methylcellulose (with Sugar) [Soluble Fiber Therapy Powder] 0 gm PO DAILY - Plan Plan:: 1. PT/OT/social service consult today. 2. Discussed her heart call her care with PT/OT. 3. Observe the breathing. If it continues consider chest x-ray. If it resolves then continue to observe.
[2016-07-22] MEDS: ALPRAZolam 0.25 MG Tab PO PRN (10:17)
[2016-07-22] MEDS: amLODIPine 5 MG Tab PO SCH (18:33)
[2016-07-22] MEDS: Insulin Detemir 100 Units/ML 3 ML Pen SUBCUT SCH (20:17)
[2016-07-23] MEDS: Omeprazole 20 MG Cap.CR PO SCH (06:45)
[2016-07-23] MEDS: traMADol 50 MG Tab PO SCH ×4 (06:46→18:28)
[2016-07-23] MEDS: Acetaminophen 325 MG Tab PO SCH ×2 (06:47→08:04)
[2016-07-23] MEDS: Lisinopril 10 MG Tab PO SCH ×2 (06:49→08:05)
--- NOTE | 2016-07-23 08:13 | PCM.PN ---
- General Info Date of Service: 07/23/16 Admission Dx/Problem (Free Text): Patient states that she's having a tough time breathing through her nose when she is lying down. This was she sits up she is fine. She can breathe through her mouth okay. She denies shortness of breath, wheezing or coughing. Yesterday she states she had just a little chest discomfort that lasted 10 minutes. Should no nausea, vomiting, diaphoresis. The pain didn't radiate and it went away on its own. The nurses report that her pain is not quite controlled and the like something for breakthrough pain. - Patient Data Vitals - most recent: Last Vital Signs Temp 98.4 F 07/23/16 05:40 Pulse 61 07/23/16 05:40 Resp 18 07/23/16 05:40 BP 209/82 H 07/23/16 06:49 Pulse Ox 95 07/23/16 05:40 Weight - most recent: 146 lb I&O - last 24 hours: Intake & Output 07/22/16 07/23/16 07/23/16 22:59 06:59 14:59 Intake Total 200 150 Output Total 0 Balance 200 150 Lab Results last 24 hrs: Laboratory Results - last 24 hr 07/22/16 07/23/16 Range/Units 16:35 05:39 POC Glucose 238 H D 223 H (80-116) mg/dL Med Orders - Current: Current Medications Alprazolam (Xanax) 0.25 mg PO BID PRN PRN Reason: Anxiety Last Admin: 07/22/16 10:17 Dose: 0.25 mg Amlodipine Besylate (Norvasc) 5 mg PO DAILY [facility] Last Admin: 07/22/16 18:33 Dose: 5 mg Cranberry (Cranberry) 500 mg PO DAILY [facility] Last Admin: 07/22/16 08:20 Dose: 500 mg Ferrous Sulfate (Ferrous Sulfate) 325 mg PO DAILY [facility] Last Admin: 07/22/16 08:21 Dose: 325 mg Fluoxetine HCl (Prozac) 10 mg PO DAILY [facility] Last Admin: 07/22/16 08:30 Dose: 10 mg Insulin Detemir (Levemir) 25 unit SUBCUT BEDTIME [facility] Last Admin: 07/22/16 20:17 Dose: 25 unit Magnesium Hydroxide (Milk Of Magnesia) 15 ml PO DAILY PRN PRN Reason: Constipation Methylcellulose (Soluble Fiber Therapy Powder) 0 gm PO DAILY [facility] Last Admin: 07/22/16 08:38 Dose: 1 tbsp Metoprolol Tartrate (Lopressor) 25 mg PO BID [facility] Last Admin: 07/22/16 20:15 Dose: 25 mg Multivitamins/Minerals/Vitamin C (Tab-A-Garima) 1 tab PO DAILY [facility] Last Admin: 07/22/16 08:25 Dose: 1 tab Nitroglycerin (Nitrostat) 0.4 mg SL Q5M PRN PRN Reason: Chest Pain Menthol [Ice Blue (Gel] Own Med ) 1 applic TOP TID PRN PRN Reason: Pain Last Admin: 07/21/16 09:10 Dose: 1 applic Omeprazole (Omeprazole) 20 mg PO DAILY@0600 [facility] Last Admin: 07/23/16 06:45 Dose: 20 mg Polyethylene Glycol (Miralax) 17 gm PO DAILY [facility] Last Admin: 07/22/16 08:23 Dose: 17 gm Discontinued Medications Acetaminophen (Tylenol) 650 mg PO Q4H PRN PRN Reason: Pain Last Admin: 07/21/16 02:52 Dose: 650 mg Acetaminophen (Tylenol) 650 mg PO Q4H PRN PRN Reason: Pain Acetaminophen (Tylenol) 650 mg PO TID [facility] Last Admin: 07/23/16 08:04 Dose: Not Given Hydromorphone HCl (Dilaudid) 1 mg IM ONETIME ONE Stop: 07/19/16 18:05 Last Admin: 07/19/16 18:22 Dose: 1 mg Hydromorphone HCl (Dilaudid) 1 mg IVPUSH ONETIME ONE Stop: 07/19/16 19:57 Last Admin: 07/19/16 20:28 Dose: 1 mg Sodium Chloride (Normal Saline) 1,000 mls @ 75 mls/hr IV ASDIRECTED [facility] Last Admin: 07/20/16 22:12 Dose: 75 mls/hr Insulin Detemir (Levemir) 25 unit SUBCUT BEDTIME [facility] Last Admin: 07/21/16 20:56 Dose: 25 unit Labetalol HCl (Normodyne) 10 mg IVPUSH ONETIME ONE PRN Reason: Protocol Stop: 07/19/16 20:22 Last Admin: 07/19/16 21:12 Dose: 10 mg Labetalol HCl (Normodyne) Confirm Administered Dose 20 mg .ROUTE .STK-MED ONE Stop: 07/19/16 21:00 Last Admin: 07/19/16 21:12 Dose: Not Given Lisinopril (Prinivil) 10 mg PO DAILY [facility] Last Admin: 07/22/16 08:24 Dose: 10 mg Lisinopril (Prinivil) 5 mg PO DAILY [facility] Last Admin: 07/22/16 08:24 Dose: 5 mg Lisinopril (Prinivil) 20 mg PO DAILY [facility] Last Admin: 07/23/16 08:05 Dose: Not Given Methylcellulose (Soluble Fiber Therapy Powder) 0 gm PO DAILY [facility] Last Admin: 07/22/16 08:37 Dose: 1 tbsp Non-Formulary Medication (Acetaminophen/Tramadol [Ultracet]) 2 tab PO TID [facility] Sodium Chloride (Saline Flush) 10 ml FLUSH ASDIRECTED PRN PRN Reason: Keep Vein Open Last Admin: 07/19/16 20:24 Dose: 10 ml Tramadol HCl (Ultram) 50 mg PO BID [facility] Last Admin: 07/20/16 21:53 Dose: 50 mg Tramadol HCl (Ultram) 50 mg PO TID [facility] Last Admin: 07/23/16 08:04 Dose: Not Given Triamcinolone Acetonide (Triamcinolone Acetonide 0.025%) 1 gm TOP BID PRN PRN Reason: Rash - Exam General: alert, oriented, cooperative Neck: other (Hard collar in place) Lungs: Clear to auscultation, Normal respiratory effort. No: Crackles, Rhonchi Cardiovascular: Regular Rate, Regular Rhythm, No Murmurs Extremities: no edema - Problem List & Annotations (1) Hypertension SNOMED Code(s): 38944902 Code(s): I10 - ESSENTIAL (PRIMARY) HYPERTENSION Status: Acute Current Visit: Yes (2) Coordination abnormal SNOMED Code(s): 702163090 Code(s): R27.8 - OTHER LACK OF COORDINATION Status: Acute Current Visit: Yes (3) Concussion SNOMED Code(s): 611273131 Code(s): S06.0X9A - CONCUSSION W LOSS OF CONSCIOUSNESS OF UNSP DURATION, INIT Status: Acute Current Visit: Yes Qualifiers: Encounter type: initial encounter Loss of consciousness presence/duration: without LOC Qualified Code(s): S06.0X0A - Concussion without loss of consciousness, initial encounter Annotation/Comment:: FAMILY CASEWORKER monitoring (4) Hyponatremia SNOMED Code(s): 93766107 Code(s): E87.1 - HYPO-OSMOLALITY AND HYPONATREMIA Status: Acute Current Visit: Yes Annotation/Comment:: Hyponatremia managed with NS infusion (5) Facial contusion SNOMED Code(s): 637850895 Code(s): S00.83XA - CONTUSION OF OTHER PART OF HEAD, INITIAL ENCOUNTER Status: Acute Current Visit: No (6) Odontoid fracture SNOMED Code(s): 654652848 Code(s): S12.100A - UNSP DISP FX OF SECOND CERVICAL VERTEBRA, INIT FOR CLOS FX Status: Acute Current Visit: Yes Qualifiers: Encounter type: initial encounter Fracture type: closed Qualified Code(s) : S12.100A - Unspecified displaced fracture of second cervical vertebra, initial encounter for closed fracture Annotation/Comment:: Nondisplaced type II - Problem List Review Problem List Initiated/Reviewed/Updated: Yes - Plan Plan:: 1. I increased her lisinopril from 20 mg to 40 mg today because of her elevated blood pressure. 2. Change Tylenol to 500 mg 4 times a day with tramadol 50 mg 4 times a day for pain. Nothing for breakthrough pain because of increasing tramadol 4 times a day. 3. Continue current care with PT/OT.
[2016-07-23] MEDS: Cranberry 500 MG Cap PO SCH (08:22)
[2016-07-23] MEDS: Multivitamin Tab PO SCH (08:22)
[2016-07-23] MEDS: Ferrous Sulfate 325 MG Tab PO SCH (08:23)
[2016-07-23] MEDS: Metoprolol Tartrate 25 MG Tab PO SCH ×2 (08:23→20:15)
[2016-07-23] MEDS: Polyethylene Glycol 3350 Powder 17 GM Packet PO SCH (08:24)
[2016-07-23] MEDS: [UNRECOGNIZED DRUG - OTHER] PO SCH (08:25)
[2016-07-23] MEDS: METHYLCELLULOSE PO SCH (08:25)
[2016-07-23] MEDS: FLUoxetine 10 MG Cap PO SCH (08:25)
[2016-07-23] MEDS ORDERED: Lisinopril 20 MG Tab PO ONE (08:30)
[2016-07-23] MEDS: amLODIPine 5 MG Tab PO SCH (08:44)
[2016-07-23] MEDS: ALPRAZolam 0.25 MG Tab PO PRN (10:39)
[2016-07-23] MEDS: Acetaminophen 500 MG Tab PO SCH ×2 (13:07→18:28)
[2016-07-23] MEDS ORDERED: Bisacodyl 10 MG Supp RECTAL PRN (17:54)
[2016-07-23] MEDS: Insulin Detemir 100 Units/ML 3 ML Pen SUBCUT SCH (20:14)
[2016-07-23] MEDS ORDERED: amLODIPine 5 MG Tab PO ONE (23:47)
[2016-07-24] MEDS: traMADol 50 MG Tab PO SCH ×2 (00:06→06:06)
[2016-07-24] MEDS: Acetaminophen 500 MG Tab PO SCH ×2 (00:07→06:06)
[2016-07-24] MEDS: Omeprazole 20 MG Cap.CR PO SCH (06:06)
[2016-07-24] MEDS: Cranberry 500 MG Cap PO SCH (08:37)
[2016-07-24] MEDS: Polyethylene Glycol 3350 Powder 17 GM Packet PO SCH (08:37)
[2016-07-24] MEDS: Ferrous Sulfate 325 MG Tab PO SCH (08:38)
[2016-07-24] MEDS: FLUoxetine 10 MG Cap PO SCH (08:38)
[2016-07-24] MEDS: Multivitamin Tab PO SCH (08:39)
[2016-07-24] MEDS: Metoprolol Tartrate 25 MG Tab PO SCH (08:49)
[2016-07-24] MEDS ORDERED: amLODIPine 10 MG Tab PO SCH (09:00)
--- NOTE | 2016-07-24 09:12 | PCM.PN ---
- General Info Date of Service: 07/24/16 Admission Dx/Problem (Free Text): Patient states she feels much better today. She can breathe through her nose today. She denies shortness of breath or chest pain. She was given a suppository and had a good BM and that made her feel better. She still has pain in her neck that is stable. - Patient Data Vitals - most recent: Last Vital Signs Temp 98.2 F 07/24/16 07:58 Pulse 62 07/24/16 08:49 Resp 18 07/24/16 07:58 BP 198/64 H 07/24/16 08:49 Pulse Ox 97 07/24/16 07:58 Weight - most recent: 146 lb Lab Results last 24 hrs: Laboratory Results - last 24 hr 07/23/16 07/24/16 Range/Units 17:56 06:09 POC Glucose 286 H 133 H D (80-116) mg/dL Med Orders - Current: Current Medications Acetaminophen (Tylenol Extra Strength) 500 mg PO Q6H ON LICENSE OF [facility] Last Admin: 07/24/16 06:06 Dose: 500 mg Alprazolam (Xanax) 0.25 mg PO BID PRN PRN Reason: Anxiety Last Admin: 07/23/16 10:39 Dose: 0.25 mg Amlodipine Besylate (Norvasc) 10 mg PO DAILY ON LICENSE OF [facility] Bisacodyl (Dulcolax) 10 mg RECTAL DAILY PRN PRN Reason: Constipation Last Admin: 07/23/16 20:39 Dose: 10 mg Cranberry (Cranberry) 500 mg PO DAILY ON LICENSE OF [facility] Last Admin: 07/24/16 08:37 Dose: 500 mg Ferrous Sulfate (Ferrous Sulfate) 325 mg PO DAILY ON LICENSE OF [facility] Last Admin: 07/24/16 08:38 Dose: 325 mg Fluoxetine HCl (Prozac) 10 mg PO DAILY ON LICENSE OF [facility] Last Admin: 07/24/16 08:38 Dose: 10 mg Insulin Detemir (Levemir) 25 unit SUBCUT BEDTIME ON LICENSE OF [facility] Last Admin: 07/23/16 20:14 Dose: 25 unit Lisinopril (Prinivil) 40 mg PO DAILY ON LICENSE OF [facility] Last Admin: 07/24/16 08:38 Dose: 40 mg Magnesium Hydroxide (Milk Of Magnesia) 15 ml PO DAILY PRN PRN Reason: Constipation Metoprolol Tartrate (Lopressor) 25 mg PO BID ON LICENSE OF [facility] Last Admin: 07/24/16 08:49 Dose: 25 mg Multivitamins/Minerals/Vitamin C (Tab-A-Garima) 1 tab PO DAILY ON LICENSE OF [facility] Last Admin: 07/24/16 08:39 Dose: 1 tab Nitroglycerin (Nitrostat) 0.4 mg SL Q5M PRN PRN Reason: Chest Pain Menthol [Ice Blue (Gel] Own Med ) 1 applic TOP TID PRN PRN Reason: Pain Last Admin: 07/21/16 09:10 Dose: 1 applic Omeprazole (Omeprazole) 20 mg PO DAILY@0600 ON LICENSE OF [facility] Last Admin: 07/24/16 06:06 Dose: 20 mg Polyethylene Glycol (Miralax) 17 gm PO DAILY ON LICENSE OF [facility] Last Admin: 07/24/16 08:37 Dose: 17 gm Tramadol HCl (Ultram) 50 mg PO Q6H ON LICENSE OF [facility] Last Admin: 07/24/16 06:06 Dose: 50 mg Discontinued Medications Acetaminophen (Tylenol) 650 mg PO Q4H PRN PRN Reason: Pain Last Admin: 07/21/16 02:52 Dose: 650 mg Acetaminophen (Tylenol) 650 mg PO Q4H PRN PRN Reason: Pain Acetaminophen (Tylenol) 650 mg PO TID ON LICENSE OF [facility] Last Admin: 07/23/16 08:04 Dose: Not Given Amlodipine Besylate (Norvasc) 5 mg PO DAILY ON LICENSE OF [facility] Last Admin: 07/23/16 08:44 Dose: 5 mg Amlodipine Besylate (Norvasc) 5 mg PO ONETIME ONE Stop: 07/23/16 23:48 Last Admin: 07/24/16 00:06 Dose: Not Given Hydromorphone HCl (Dilaudid) 1 mg IM ONETIME ONE Stop: 07/19/16 18:05 Last Admin: 07/19/16 18:22 Dose: 1 mg Hydromorphone HCl (Dilaudid) 1 mg IVPUSH ONETIME ONE Stop: 07/19/16 19:57 Last Admin: 07/19/16 20:28 Dose: 1 mg Sodium Chloride (Normal Saline) 1,000 mls @ 75 mls/hr IV ASDIRECTED ON LICENSE OF [facility] Last Admin: 07/20/16 22:12 Dose: 75 mls/hr Insulin Detemir (Levemir) 25 unit SUBCUT BEDTIME ON LICENSE OF [facility] Last Admin: 07/21/16 20:56 Dose: 25 unit Labetalol HCl (Normodyne) 10 mg IVPUSH ONETIME ONE PRN Reason: Protocol Stop: 07/19/16 20:22 Last Admin: 07/19/16 21:12 Dose: 10 mg Labetalol HCl (Normodyne) Confirm Administered Dose 20 mg .ROUTE .STK-MED ONE Stop: 07/19/16 21:00 Last Admin: 07/19/16 21:12 Dose: Not Given Lisinopril (Prinivil) 10 mg PO DAILY ON LICENSE OF [facility] Last Admin: 07/22/16 08:24 Dose: 10 mg Lisinopril (Prinivil) 5 mg PO DAILY ON [facility] OF [facility] Last Admin: 07/22/16 08:24 Dose: 5 mg Lisinopril (Prinivil) 20 mg PO DAILY ON [facility] Last Admin: 07/23/16 08:05 Dose: Not Given Lisinopril (Prinivil) 20 mg PO ONETIME ONE Stop: 07/23/16 08:31 Last Admin: 07/23/16 08:43 Dose: 20 mg Methylcellulose (Soluble Fiber Therapy Powder) 0 gm PO DAILY ON LICENSE OF [facility] Last Admin: 07/22/16 08:37 Dose: 1 tbsp Methylcellulose (Soluble Fiber Therapy Powder) 0 gm PO DAILY ON LICENSE OF [facility] Last Admin: 07/23/16 08:25 Dose: 1 tbsp Non-Formulary Medication (Acetaminophen/Tramadol [Ultracet]) 2 tab PO TID ON LICENSE OF [facility] Last Admin: 07/23/16 08:30 Dose: Not Given Sodium Chloride (Saline Flush) 10 ml FLUSH ASDIRECTED PRN PRN Reason: Keep Vein Open Last Admin: 07/19/16 20:24 Dose: 10 ml Tramadol HCl (Ultram) 50 mg PO BID ON LICENSE OF [facility] Last Admin: 07/20/16 21:53 Dose: 50 mg Tramadol HCl (Ultram) 50 mg PO TID ON LICENSE OF [facility] Last Admin: 07/23/16 08:04 Dose: Not Given Triamcinolone Acetonide (Triamcinolone Acetonide 0.025%) 1 gm TOP BID PRN PRN Reason: Rash - Exam General: alert, oriented, cooperative Neck: other (Hard collar neck) Lungs: Clear to auscultation, Normal respiratory effort. No: Crackles, Rales, Rhonchi Cardiovascular: Regular Rate, Regular Rhythm, No Murmurs Abdomen: soft, no tenderness, no distension Extremities: no edema Skin: ecchymosis (Face improving. With hematoma left forehead.) - Problem List & Annotations (1) Hypertension SNOMED Code(s): 22030001 Code(s): I10 - ESSENTIAL (PRIMARY) HYPERTENSION Status: Acute Current Visit: Yes (2) Coordination abnormal SNOMED Code(s): 738634095 Code(s): R27.8 - OTHER LACK OF COORDINATION Status: Acute Current Visit: Yes (3) Concussion SNOMED Code(s): 545386307 Code(s): S06.0X9A - CONCUSSION W LOSS OF CONSCIOUSNESS OF UNSP DURATION, INIT Status: Acute Current Visit: Yes Qualifiers: Encounter type: initial encounter Loss of consciousness presence/duration: without LOC Qualified Code(s): S06.0X0A - Concussion without loss of consciousness, initial encounter Annotation/Comment:: 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 (4) Hyponatremia SNOMED Code(s): 77649994 Code(s): E87.1 - HYPO-OSMOLALITY AND HYPONATREMIA Status: Acute Current Visit: Yes Annotation/Comment:: Hyponatremia managed with NS infusion (5) Facial contusion SNOMED Code(s): 999854493 Code(s): S00.83XA - CONTUSION OF OTHER PART OF HEAD, INITIAL ENCOUNTER Status: Acute Current Visit: No (6) Odontoid fracture SNOMED Code(s): 913839928 Code(s): S12.100A - UNSP DISP FX OF SECOND CERVICAL VERTEBRA, INIT FOR CLOS FX Status: Acute Current Visit: Yes Qualifiers: Encounter type: initial encounter Fracture type: closed Qualified Code(s) : S12.100A - Unspecified displaced fracture of second cervical vertebra, initial encounter for closed fracture Annotation/Comment:: Nondisplaced type II (7) Traumatic hematoma of head SNOMED Code(s): 899095595 Code(s): S00.93XA - CONTUSION OF UNSPECIFIED PART OF HEAD, INITIAL ENCOUNTER Status: Acute Current Visit: Yes - Problem List Review Problem List Initiated/Reviewed/Updated: Yes - My Orders Last 24 Hours: My Active Orders 07/23/16 12:00 Acetaminophen [Tylenol Extra Strength] 500 mg PO Q6H traMADol [Ultram] 50 mg PO Q6H 07/23/16 17:54 Bisacodyl [Dulcolax] 10 mg RECTAL DAILY PRN 07/24/16 09:00 Lisinopril [Prinivil] 40 mg PO DAILY - Plan Plan:: 1. continue current care. 2. Waiting for [facility] placement.
--- NOTE | 2016-07-24 09:56 | PCM.DCSUM1 ---
Discharge Summary - Hospital Course Free Text/Narrative:: Hospital course-patient was admitted head CT and facial CT were negative except for external hematomas. Next initiate her next CT that showed type II nondisplaced odontoid fracture. This is discussed with neurosurgery and we put her in a hard collar that she needs to wear all the time. They stated they would see her outpatient. I placed an order in appetite and sent a message to our phone nurses to see if she could see Dr. Murphy a neurosurgeon here at our clinic at his next visit. Patient did quite fine except for a blood pressure increase. I changed her 50 mg of lisinopril to 40 mg and start her on Norvasc 5 mg a day. PT/OT saw her and will continue to work with her. We'll transfer to [facility]. Brief History: his is an 89-year-old female patient that is a resident of [facility]. She states she was walking behind her wheelchair and her knee gave out and she fell down on the floor and hit her face on a box. This happened at 3 PM. The assistance came to evaluate her and then called the ambulance at 5 PM. They brought her to the ER here at [place]. She states that her neck is sore. She felt nauseated last night but that's better this morning. She cannot see out of her left eye due to swelling. She states her body aches all over and that's normal for her. Her left knee hurts but that stopped in the fall it's chronic. And it gives out on her. She denies chest pain, palpitations, shortness of breath, cough, dysuria, pyuria or hematuria. She denies fevers or chills. 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 monitoring Qualifiers: Encounter type: initial encounter Loss of consciousness presence/duration: without LOC Qualified Code(s): S06.0X0A - Concussion without loss of consciousness, initial encounter (4) Hyponatremia SNOMED Code(s): 01340063 ICD Code: E87.1 - HYPO-OSMOLALITY AND HYPONATREMIA Status: Acute Current Visit: Yes Problem Details: Hyponatremia managed with NS infusion (5) Facial contusion SNOMED Code(s): 667097515 ICD Code: S00.83XA - CONTUSION OF OTHER PART OF HEAD, INITIAL ENCOUNTER Status: Acute Current Visit: No (6) Odontoid fracture SNOMED Code(s): 729062680 ICD Code: S12.100A - UNSP DISP FX OF SECOND CERVICAL VERTEBRA, INIT FOR CLOS FX Status: Acute Current Visit: Yes Problem Details: Nondisplaced type II Qualifiers: Encounter type: initial encounter Fracture type: closed Qualified Code(s) : S12.100A - Unspecified displaced fracture of second cervical vertebra, initial encounter for closed fracture (7) Traumatic hematoma of head SNOMED Code(s): 666645549 ICD Code: S00.93XA - CONTUSION OF UNSPECIFIED PART OF HEAD, INITIAL ENCOUNTER Status: Acute Current Visit: Yes - Patient Summary/Data Consults: Consultations 07/20/16 09:09 Consult to [facility] [CONS] Routine Comment: Physician Instructions: - Patient Instructions Diet: Diabetic Diet Activity: As Tolerated Driving: Do Not Drive Showering/Bathing: May Shower Other/Special Instructions: 1. Neurosurgery appointment outpatient - Discharge Plan Home Medications: Home Meds ALPRAZolam [Alprazolam] 0.25 mg PO BID PRN 11/04/15 [History] Aspirin [Ecotrin] 81 mg PO DAILY 11/04/15 [History] Clopidogrel Bisulfate [Clopidogrel] 75 mg PO DAILY 11/04/15 [History] Cranberry Conc/Ascorbic Acid [Cranberry Plus Vitamin C Sftgl] 300 mg PO DAILY [History] Insulin Glarg,Human.Rec.Analog [Lantus Solostar] 25 unit SUBCUT BEDTIME [History] Metoprolol Tartrate 25 mg PO BID 11/04/15 [History] Omeprazole 20 mg PO DAILY 11/04/15 [History] traMADol [Ultram] 50 - 100 mg PO BID 11/04/15 [History] FLUoxetine HCl [Fluoxetine] 10 mg PO DAILY 07/19/16 [History] Ferrous Sulfate [Iron] 325 mg PO DAILY 07/19/16 [History] Methylcellulose (with Sugar) [Citrucel] 1 tbsp PO DAILY 07/19/16 [History] Multivitamin [Multi-Vitamin Daily] 1 each PO DAILY 07/19/16 [History] Nitroglycerin [Nitrostat] 0.4 mg SL Q5M PRN 07/19/16 [History] Polyethylene Glycol 3350 [Miralax] 17 gm PO DAILY 07/19/16 [History] Acetaminophen 325 mg PO BEDTIME 07/20/16 [History] Acetaminophen [Tylenol] 650 mg PO Q4H PRN 07/20/16 [History] Acetaminophen/traMADol [Ultracet] 2 tab PO TID 07/20/16 [History] Magnesium Hydroxide [Milk of Magnesia] 15 ml PO DAILY PRN 07/20/16 [History] Menthol [Ice Blue Gel] 1 applic TOP ASDIRECTED 07/20/16 [History] Acetaminophen [Tylenol Extra Strength] 500 mg PO Q6H #0 tablet 07/24/16 [Rx] Bisacodyl [Dulcolax] 10 mg RECTAL DAILY PRN #0 supp 07/24/16 [Rx] Lisinopril [Prinivil] 40 mg PO DAILY #0 tablet 07/24/16 [Rx] amLODIPine [Norvasc] 10 mg PO DAILY #0 tablet 07/24/16 [Rx] Forms: ED Department Discharge Referrals: Jeffy Logan PA-C [Primary Care Provider] - - Discharge Summary/Plan Comment DC Time >30 min.: No - Patient Data Vitals - Most Recent: Last Vital Signs Temp 98.2 F 07/24/16 07:58 Pulse 62 07/24/16 08:49 Resp 18 07/24/16 07:58 BP 198/64 H 07/24/16 08:49 Pulse Ox 97 07/24/16 07:58 Weight - Most Recent: 146 lb Lab Results - Last 24 hrs: Laboratory Results - last 24 hr 07/23/16 07/24/16 Range/Units 17:56 06:09 POC Glucose 286 H 133 H D (80-116) mg/dL Med Orders - Current: Current Medications Acetaminophen (Tylenol Extra Strength) 500 mg PO Q6H [facility] Last Admin: 07/24/16 06:06 Dose: 500 mg Alprazolam (Xanax) 0.25 mg PO BID PRN PRN Reason: Anxiety Last Admin: 07/23/16 10:39 Dose: 0.25 mg Amlodipine Besylate (Norvasc) 10 mg PO DAILY [facility] Bisacodyl (Dulcolax) 10 mg RECTAL DAILY PRN PRN Reason: Constipation Last Admin: 07/23/16 20:39 Dose: 10 mg Cranberry (Cranberry) 500 mg PO DAILY [facility] Last Admin: 07/24/16 08:37 Dose: 500 mg Ferrous Sulfate (Ferrous Sulfate) 325 mg PO DAILY [facility] Last Admin: 07/24/16 08:38 Dose: 325 mg Fluoxetine HCl (Prozac) 10 mg PO DAILY [facility] Last Admin: 07/24/16 08:38 Dose: 10 mg Insulin Detemir (Levemir) 25 unit SUBCUT BEDTIME [facility] Last Admin: 07/23/16 20:14 Dose: 25 unit Lisinopril (Prinivil) 40 mg PO DAILY [facility] Last Admin: 07/24/16 08:38 Dose: 40 mg Magnesium Hydroxide (Milk Of Magnesia) 15 ml PO DAILY PRN PRN Reason: Constipation Metoprolol Tartrate (Lopressor) 25 mg PO BID [facility] Last Admin: 07/24/16 08:49 Dose: 25 mg Multivitamins/Minerals/Vitamin C (Tab-A-Garima) 1 tab PO DAILY [facility] Last Admin: 07/24/16 08:39 Dose: 1 tab Nitroglycerin (Nitrostat) 0.4 mg SL Q5M PRN PRN Reason: Chest Pain Menthol [Ice Blue (Gel] Own Med ) 1 applic TOP TID PRN PRN Reason: Pain Last Admin: 07/21/16 09:10 Dose: 1 applic Omeprazole (Omeprazole) 20 mg PO DAILY@0600 [facility] Last Admin: 07/24/16 06:06 Dose: 20 mg Polyethylene Glycol (Miralax) 17 gm PO DAILY [facility] Last Admin: 07/24/16 08:37 Dose: 17 gm Tramadol HCl (Ultram) 50 mg PO Q6H [facility] Last Admin: 07/24/16 06:06 Dose: 50 mg Discontinued Medications Acetaminophen (Tylenol) 650 mg PO Q4H PRN PRN Reason: Pain Last Admin: 07/21/16 02:52 Dose: 650 mg Acetaminophen (Tylenol) 650 mg PO Q4H PRN PRN Reason: Pain Acetaminophen (Tylenol) 650 mg PO TID [facility] Last Admin: 07/23/16 08:04 Dose: Not Given Amlodipine Besylate (Norvasc) 5 mg PO DAILY [facility] Last Admin: 07/23/16 08:44 Dose: 5 mg Amlodipine Besylate (Norvasc) 5 mg PO ONETIME ONE Stop: 07/23/16 23:48 Last Admin: 07/24/16 00:06 Dose: Not Given Hydromorphone HCl (Dilaudid) 1 mg IM ONETIME ONE Stop: 07/19/16 18:05 Last Admin: 07/19/16 18:22 Dose: 1 mg Hydromorphone HCl (Dilaudid) 1 mg IVPUSH ONETIME ONE Stop: 07/19/16 19:57 Last Admin: 07/19/16 20:28 Dose: 1 mg Sodium Chloride (Normal Saline) 1,000 mls @ 75 mls/hr IV ASDIRECTED [facility] Last Admin: 07/20/16 22:12 Dose: 75 mls/hr Insulin Detemir (Levemir) 25 unit SUBCUT BEDTIME [facility] Last Admin: 07/21/16 20:56 Dose: 25 unit Labetalol HCl (Normodyne) 10 mg IVPUSH ONETIME ONE PRN Reason: Protocol Stop: 07/19/16 20:22 Last Admin: 07/19/16 21:12 Dose: 10 mg Labetalol HCl (Normodyne) Confirm Administered Dose 20 mg .ROUTE .STK-MED ONE Stop: 07/19/16 21:00 Last Admin: 07/19/16 21:12 Dose: Not Given Lisinopril (Prinivil) 10 mg PO DAILY [facility] Last Admin: 07/22/16 08:24 Dose: 10 mg Lisinopril (Prinivil) 5 mg PO DAILY [facility] Last Admin: 07/22/16 08:24 Dose: 5 mg Lisinopril (Prinivil) 20 mg PO DAILY [facility] Last Admin: 07/23/16 08:05 Dose: Not Given Lisinopril (Prinivil) 20 mg PO ONETIME ONE Stop: 07/23/16 08:31 Last Admin: 07/23/16 08:43 Dose: 20 mg Methylcellulose (Soluble Fiber Therapy Powder) 0 gm PO DAILY [facility] Last Admin: 07/22/16 08:37 Dose: 1 tbsp Methylcellulose (Soluble Fiber Therapy Powder) 0 gm PO DAILY [facility] Last Admin: 07/23/16 08:25 Dose: 1 tbsp Non-Formulary Medication (Acetaminophen/Tramadol [Ultracet]) 2 tab PO TID [facility] Last Admin: 07/23/16 08:30 Dose: Not Given Sodium Chloride (Saline Flush) 10 ml FLUSH ASDIRECTED PRN PRN Reason: Keep Vein Open Last Admin: 07/19/16 20:24 Dose: 10 ml Tramadol HCl (Ultram) 50 mg PO BID [facility] Last Admin: 07/20/16 21:53 Dose: 50 mg Tramadol HCl (Ultram) 50 mg PO TID [facility] Last Admin: 07/23/16 08:04 Dose: Not Given Triamcinolone Acetonide (Triamcinolone Acetonide 0.025%) 1 gm TOP BID PRN PRN Reason: Rash *Q Meaningful Use (DIS) - VTE *Q VTE Criteria *Q: - Stroke *Q Stroke Criteria *Q: - AMI *Q AMI Criteria *Q:
[2016-07-24 14:33] VITALS: BP 199/72
== END 2016-07-24 10:39 | disposition swing bed (61) | DRG 89 ==
LOC: FB.ED 17:56 → FB.MS 19:52 → OBSVTOIN 07-20 09:08
PROVIDERS: ADMIT Family Medicine; ATTEND Family Medicine
DX: S06.0X0A Concussion without loss of consciousness, initial encounter (principal); E87.1 Hypo-osmolality and hyponatremia; S12.100A Unspecified displaced fracture of second cervical vertebra, initial encounter for closed fracture; I10 Essential (primary) hypertension; E11.9 Type 2 diabetes mellitus without complications; Z79.4 Long term (current) use of insulin; Z66 Do not resuscitate; W18.39XA Other fall on same level, initial encounter; Y93.01 Activity, walking, marching and hiking; Y92.199 Unspecified place in other specified residential institution as the place of occurrence of the external cause; S00.83XA Contusion of other part of head, initial encounter; Z87.891 Personal history of nicotine dependence; R27.8 Other lack of coordination; M19.90 Unspecified osteoarthritis, unspecified site; K59.09 Other constipation; Z87.440 Personal history of urinary (tract) infections; H54.7 Unspecified visual loss; Z79.82 Long term (current) use of aspirin
CPT/HCPCS: 36415 ×2; 70450; 70481; 80048 ×2; 81001; 82962; 85025; 96374; 96375; 99284 ×2; A9270; J1170 ×2; J7040 ×2; J7050; 72125; 96361; 96372; 97110-GP; 97116-GP; 97162-GP; 97166-GO; 97530-GO; 97530-GO-KX; 97530-GP; 97535-GO; 97542-GO; 99226; G0378

== ENCOUNTER 2016-07-24 10:41 | Inpatient (IN) | payer MEDICARE, BC ==
[2016-07-24] MEDS ORDERED: Bisacodyl 10 MG Supp RECTAL PRN ×2 (11:50→13:52)
[2016-07-24] MEDS ORDERED: Tuberculin, PPD 5 Units/0.1 ML 1 ML MDV IDERM ONE (11:50)
[2016-07-24] MEDS ORDERED: Magnesium Hydroxide 400 MG/5 ML Susp 30 ML Cup PO PRN (13:52)
[2016-07-24] MEDS ORDERED: Acetaminophen 325 MG Tab PO PRN (13:52)
[2016-07-24] MEDS ORDERED: Nitroglycerin 0.4 MG Tab.SL SL PRN (13:52)
[2016-07-24] MEDS ORDERED: TRAMADOL PO SCH (14:00)
[2016-07-24] MEDS ORDERED: ACETAMINOPHEN PO SCH (14:00)
[2016-07-24] MEDS: Acetaminophen 500 MG Tab PO SCH ×2 (15:01→20:34)
[2016-07-24] MEDS: ALPRAZolam 0.25 MG Tab PO PRN (15:01)
[2016-07-24] MEDS: traMADol 50 MG Tab PO SCH ×2 (15:33→20:34)
[2016-07-24] MEDS: Insulin Detemir 100 Units/ML 3 ML Pen SUBCUT SCH (20:34)
[2016-07-24] MEDS: Metoprolol Tartrate 25 MG Tab PO SCH (20:35)
[2016-07-24] MEDS ORDERED: Acetaminophen 325 MG Tab PO SCH (21:00)
[2016-07-25] MEDS: Acetaminophen 500 MG Tab PO SCH ×4 (01:16→21:19)
[2016-07-25] MEDS: traMADol 50 MG Tab PO SCH ×4 (01:16→21:19)
[2016-07-25] MEDS: Omeprazole 20 MG Cap.CR PO SCH (05:11)
[2016-07-25] MEDS: amLODIPine 10 MG Tab PO SCH (08:39)
[2016-07-25] MEDS: Polyethylene Glycol 3350 Powder 17 GM Packet PO SCH (08:40)
[2016-07-25] MEDS: Cranberry 500 MG Cap PO SCH (08:40)
[2016-07-25] MEDS: Multivitamin Tab PO SCH (08:40)
[2016-07-25] MEDS: Ferrous Sulfate 325 MG Tab PO SCH (08:40)
[2016-07-25] MEDS: Metoprolol Tartrate 25 MG Tab PO SCH ×2 (08:41→21:21)
[2016-07-25] MEDS: FLUoxetine 10 MG Cap PO SCH (08:41)
[2016-07-25] MEDS: Clopidogrel 75 MG Tab PO SCH (08:42)
[2016-07-25] MEDS: Aspirin 81 MG Tab.EC PO SCH (08:42)
[2016-07-25] MEDS: METHYLCELLULOSE PO SCH (08:44)
[2016-07-25] MEDS: [UNRECOGNIZED DRUG - OTHER] PO SCH (08:44)
[2016-07-25] MEDS: ALPRAZolam 0.25 MG Tab PO PRN (14:04)
[2016-07-25] MEDS: Insulin Detemir 100 Units/ML 3 ML Pen SUBCUT SCH (21:17)
[2016-07-26] MEDS: traMADol 50 MG Tab PO SCH ×4 (02:51→22:11)
[2016-07-26] MEDS: Acetaminophen 500 MG Tab PO SCH ×4 (02:51→22:04)
[2016-07-26] MEDS: Omeprazole 20 MG Cap.CR PO SCH (05:19)
[2016-07-26] MEDS: Cranberry 500 MG Cap PO SCH (11:31)
[2016-07-26] MEDS: Multivitamin Tab PO SCH (11:31)
[2016-07-26] MEDS: Ferrous Sulfate 325 MG Tab PO SCH (11:32)
[2016-07-26] MEDS: Metoprolol Tartrate 25 MG Tab PO SCH ×2 (11:32→22:04)
[2016-07-26] MEDS: amLODIPine 10 MG Tab PO SCH (11:33)
[2016-07-26] MEDS: Aspirin 81 MG Tab.EC PO SCH (11:34)
[2016-07-26] MEDS: FLUoxetine 10 MG Cap PO SCH (11:34)
[2016-07-26] MEDS: Clopidogrel 75 MG Tab PO SCH (11:35)
[2016-07-26] MEDS: METHYLCELLULOSE PO SCH (11:35)
[2016-07-26] MEDS: [UNRECOGNIZED DRUG - OTHER] PO SCH (11:35)
[2016-07-26] MEDS: Polyethylene Glycol 3350 Powder 17 GM Packet PO SCH (11:35)
[2016-07-26] MEDS: ALPRAZolam 0.25 MG Tab PO PRN (15:53)
[2016-07-26] MEDS: Insulin Detemir 100 Units/ML 3 ML Pen SUBCUT SCH (22:00)
[2016-07-27] MEDS: Acetaminophen 500 MG Tab PO SCH ×4 (04:17→21:04)
[2016-07-27] MEDS: traMADol 50 MG Tab PO SCH ×4 (04:17→21:04)
[2016-07-27] MEDS: Omeprazole 20 MG Cap.CR PO SCH (06:00)
[2016-07-27] MEDS: Cranberry 500 MG Cap PO SCH (08:27)
[2016-07-27] MEDS: Aspirin 81 MG Tab.EC PO SCH (08:27)
[2016-07-27] MEDS: Ferrous Sulfate 325 MG Tab PO SCH (08:27)
[2016-07-27] MEDS: Metoprolol Tartrate 25 MG Tab PO SCH ×2 (08:28→19:59)
[2016-07-27] MEDS: amLODIPine 10 MG Tab PO SCH (08:29)
[2016-07-27] MEDS: Clopidogrel 75 MG Tab PO SCH (08:29)
[2016-07-27] MEDS: FLUoxetine 10 MG Cap PO SCH (08:30)
[2016-07-27] MEDS: Multivitamin Tab PO SCH (08:30)
[2016-07-27] MEDS: Polyethylene Glycol 3350 Powder 17 GM Packet PO SCH (08:31)
[2016-07-27] MEDS: METHYLCELLULOSE PO SCH (08:32)
[2016-07-27] MEDS: [UNRECOGNIZED DRUG - OTHER] PO SCH (08:32)
[2016-07-27] MEDS: ALPRAZolam 0.25 MG Tab PO PRN (11:31)
[2016-07-27] MEDS: Insulin Detemir 100 Units/ML 3 ML Pen SUBCUT SCH (19:59)
[2016-07-28] MEDS: Acetaminophen 500 MG Tab PO SCH ×4 (05:00→21:21)
[2016-07-28] MEDS: traMADol 50 MG Tab PO SCH ×4 (05:01→21:21)
[2016-07-28] MEDS: Omeprazole 20 MG Cap.CR PO SCH (05:01)
[2016-07-28] MEDS: [UNRECOGNIZED DRUG - OTHER] PO SCH (09:49)
[2016-07-28] MEDS: METHYLCELLULOSE PO SCH (09:49)
[2016-07-28] MEDS: Cranberry 500 MG Cap PO SCH (09:50)
[2016-07-28] MEDS: Polyethylene Glycol 3350 Powder 17 GM Packet PO SCH (09:50)
[2016-07-28] MEDS: Ferrous Sulfate 325 MG Tab PO SCH (09:51)
[2016-07-28] MEDS: Metoprolol Tartrate 25 MG Tab PO SCH ×2 (09:51→21:21)
[2016-07-28] MEDS: Aspirin 81 MG Tab.EC PO SCH (09:51)
[2016-07-28] MEDS: FLUoxetine 10 MG Cap PO SCH (09:52)
[2016-07-28] MEDS: amLODIPine 10 MG Tab PO SCH (09:52)
[2016-07-28] MEDS: Clopidogrel 75 MG Tab PO SCH (09:52)
[2016-07-28] MEDS: Multivitamin Tab PO SCH (09:53)
[2016-07-28] MEDS: Insulin Detemir 100 Units/ML 3 ML Pen SUBCUT SCH (21:18)
[2016-07-29] MEDS: traMADol 50 MG Tab PO SCH ×4 (04:36→21:48)
[2016-07-29] MEDS: Acetaminophen 500 MG Tab PO SCH ×4 (04:37→21:50)
[2016-07-29] MEDS: Omeprazole 20 MG Cap.CR PO SCH (06:11)
[2016-07-29] MEDS: Ferrous Sulfate 325 MG Tab PO SCH (08:16)
[2016-07-29] MEDS: Aspirin 81 MG Tab.EC PO SCH (08:16)
[2016-07-29] MEDS: Cranberry 500 MG Cap PO SCH (08:16)
[2016-07-29] MEDS: Metoprolol Tartrate 25 MG Tab PO SCH ×2 (08:17→21:50)
[2016-07-29] MEDS: Clopidogrel 75 MG Tab PO SCH (08:18)
[2016-07-29] MEDS: Polyethylene Glycol 3350 Powder 17 GM Packet PO SCH (08:18)
[2016-07-29] MEDS: amLODIPine 10 MG Tab PO SCH (08:18)
[2016-07-29] MEDS: FLUoxetine 10 MG Cap PO SCH (08:19)
[2016-07-29] MEDS: Multivitamin Tab PO SCH (08:19)
[2016-07-29] MEDS: [UNRECOGNIZED DRUG - OTHER] PO SCH (08:23)
[2016-07-29] MEDS: METHYLCELLULOSE PO SCH (08:23)
[2016-07-29] MEDS: MENTHOL TOP PRN ×2 (11:30→19:55)
[2016-07-29] MEDS: Insulin Detemir 100 Units/ML 3 ML Pen SUBCUT SCH (21:48)
[2016-07-30] MEDS: Ciprofloxacin 500 MG Tab PO SCH ×3 (01:14→21:00)
[2016-07-30] MEDS: traMADol 50 MG Tab PO SCH ×4 (04:25→22:06)
[2016-07-30] MEDS: Acetaminophen 500 MG Tab PO SCH ×4 (04:25→22:05)
[2016-07-30] MEDS: Omeprazole 20 MG Cap.CR PO SCH (06:13)
[2016-07-30] MEDS: Ferrous Sulfate 325 MG Tab PO SCH (08:10)
[2016-07-30] MEDS: Cranberry 500 MG Cap PO SCH (08:10)
[2016-07-30] MEDS: Metoprolol Tartrate 25 MG Tab PO SCH ×2 (08:11→21:04)
[2016-07-30] MEDS: Aspirin 81 MG Tab.EC PO SCH (08:11)
[2016-07-30] MEDS: amLODIPine 10 MG Tab PO SCH (08:12)
[2016-07-30] MEDS: Polyethylene Glycol 3350 Powder 17 GM Packet PO SCH (08:12)
[2016-07-30] MEDS: FLUoxetine 10 MG Cap PO SCH (08:13)
[2016-07-30] MEDS: Clopidogrel 75 MG Tab PO SCH (08:13)
[2016-07-30] MEDS: Multivitamin Tab PO SCH (08:14)
[2016-07-30] MEDS: [UNRECOGNIZED DRUG - OTHER] PO SCH (08:14)
[2016-07-30] MEDS: METHYLCELLULOSE PO SCH (08:14)
[2016-07-30] MEDS ORDERED: Insulin Aspart 100 Units/ML 3 ML Pen SUBCUT SCH (12:00)
[2016-07-30] MEDS: ALPRAZolam 0.25 MG Tab PO PRN (14:43)
[2016-07-30] MEDS: Insulin Aspart 100 Units/ML 3 ML Pen SUBCUT SCH (17:39)
[2016-07-30] MEDS: Insulin Detemir 100 Units/ML 3 ML Pen SUBCUT SCH (21:21)
[2016-07-31] MEDS: Acetaminophen 500 MG Tab PO SCH ×4 (03:34→21:34)
[2016-07-31] MEDS: traMADol 50 MG Tab PO SCH (03:35)
[2016-07-31] MEDS: Omeprazole 20 MG Cap.CR PO SCH (06:07)
[2016-07-31] MEDS: Insulin Aspart 100 Units/ML 3 ML Pen SUBCUT SCH ×2 (08:14→17:44)
[2016-07-31] MEDS: Ciprofloxacin 500 MG Tab PO SCH ×2 (08:18→21:17)
[2016-07-31] MEDS: Cranberry 500 MG Cap PO SCH (08:18)
[2016-07-31] MEDS: Metoprolol Tartrate 25 MG Tab PO SCH ×2 (08:19→21:17)
[2016-07-31] MEDS: Aspirin 81 MG Tab.EC PO SCH (08:19)
[2016-07-31] MEDS: Ferrous Sulfate 325 MG Tab PO SCH (08:19)
[2016-07-31] MEDS: amLODIPine 10 MG Tab PO SCH (08:20)
[2016-07-31] MEDS: Polyethylene Glycol 3350 Powder 17 GM Packet PO SCH (08:20)
[2016-07-31] MEDS: METHYLCELLULOSE PO SCH (08:21)
[2016-07-31] MEDS: FLUoxetine 10 MG Cap PO SCH (08:21)
[2016-07-31] MEDS: Clopidogrel 75 MG Tab PO SCH (08:21)
[2016-07-31] MEDS: [UNRECOGNIZED DRUG - OTHER] PO SCH (08:21)
[2016-07-31] MEDS: Multivitamin Tab PO SCH (08:22)
[2016-07-31] MEDS: Insulin Detemir 100 Units/ML 3 ML Pen SUBCUT SCH (21:26)
[2016-07-31] MEDS: MENTHOL TOP PRN (21:32)
[2016-08-01] MEDS: ALPRAZolam 0.25 MG Tab PO PRN ×2 (01:20→20:32)
[2016-08-01] MEDS: Acetaminophen 500 MG Tab PO SCH ×4 (04:52→22:43)
[2016-08-01] MEDS: Omeprazole 20 MG Cap.CR PO SCH (04:59)
[2016-08-01] MEDS: traMADol 50 MG Tab PO PRN (07:44)
[2016-08-01] MEDS: Insulin Aspart 100 Units/ML 3 ML Pen SUBCUT SCH ×2 (09:24→18:50)
[2016-08-01] MEDS: Cranberry 500 MG Cap PO SCH (09:26)
[2016-08-01] MEDS: Ciprofloxacin 500 MG Tab PO SCH ×2 (09:26→20:28)
[2016-08-01] MEDS: Multivitamin Tab PO SCH (09:26)
[2016-08-01] MEDS: Ferrous Sulfate 325 MG Tab PO SCH (09:27)
[2016-08-01] MEDS: Metoprolol Tartrate 25 MG Tab PO SCH ×2 (09:27→20:28)
[2016-08-01] MEDS: Polyethylene Glycol 3350 Powder 17 GM Packet PO SCH (09:27)
[2016-08-01] MEDS: Aspirin 81 MG Tab.EC PO SCH (09:27)
[2016-08-01] MEDS: Clopidogrel 75 MG Tab PO SCH (09:28)
[2016-08-01] MEDS: FLUoxetine 10 MG Cap PO SCH (09:28)
[2016-08-01] MEDS: METHYLCELLULOSE PO SCH (09:28)
[2016-08-01] MEDS: [UNRECOGNIZED DRUG - OTHER] PO SCH (09:28)
[2016-08-01] MEDS: amLODIPine 10 MG Tab PO SCH (09:28)
[2016-08-01] MEDS: Insulin Detemir 100 Units/ML 3 ML Pen SUBCUT SCH (20:32)
[2016-08-02] MEDS: traMADol 50 MG Tab PO PRN ×3 (02:05→22:29)
[2016-08-02] MEDS: Acetaminophen 500 MG Tab PO SCH ×4 (04:24→21:37)
[2016-08-02] MEDS: Omeprazole 20 MG Cap.CR PO SCH (06:07)
[2016-08-02] MEDS: Insulin Aspart 100 Units/ML 3 ML Pen SUBCUT SCH ×2 (07:55→17:51)
[2016-08-02] MEDS: ALPRAZolam 0.25 MG Tab PO PRN (08:45)
[2016-08-02] MEDS: Ciprofloxacin 500 MG Tab PO SCH ×2 (08:46→20:15)
[2016-08-02] MEDS: Cranberry 500 MG Cap PO SCH (08:46)
[2016-08-02] MEDS: Aspirin 81 MG Tab.EC PO SCH (08:47)
[2016-08-02] MEDS: Ferrous Sulfate 325 MG Tab PO SCH (08:47)
[2016-08-02] MEDS: Metoprolol Tartrate 25 MG Tab PO SCH ×2 (08:47→20:16)
[2016-08-02] MEDS: Clopidogrel 75 MG Tab PO SCH (08:48)
[2016-08-02] MEDS: Polyethylene Glycol 3350 Powder 17 GM Packet PO SCH (08:48)
[2016-08-02] MEDS: amLODIPine 10 MG Tab PO SCH (08:48)
[2016-08-02] MEDS: FLUoxetine 10 MG Cap PO SCH (08:49)
[2016-08-02] MEDS: Multivitamin Tab PO SCH (08:49)
[2016-08-02] MEDS: METHYLCELLULOSE PO SCH (08:50)
[2016-08-02] MEDS: [UNRECOGNIZED DRUG - OTHER] PO SCH (08:50)
--- NOTE | 2016-08-02 12:08 | PN ---
DATE SEEN: 08/02/2016 SUBJECTIVE: Elisabeth Mcintosh is a delightful 89-year-old female from [facility] seen today for review. Plan to discharge to [facility] on Friday with Home Health. Present medications reviewed and appropriate. Has a C4 fracture by report. Brace in place time buyer, 3 months duration. Follow up as appropriate. OBJECTIVE: In good spirits. Collar in place. Upper extremities have full range of motion. Reflex symmetric and sensation intact. C2 fracture. PLAN: Color appropriate, nonsurgical at this time. /[id number] LOLA/CARLOTA
[2016-08-02] MEDS: Insulin Detemir 100 Units/ML 3 ML Pen SUBCUT SCH (20:17)
[2016-08-03] MEDS: Acetaminophen 500 MG Tab PO SCH ×2 (03:56→10:26)
[2016-08-03] MEDS: Omeprazole 20 MG Cap.CR PO SCH (06:11)
[2016-08-03] MEDS: traMADol 50 MG Tab PO PRN (07:44)
[2016-08-03] MEDS: ALPRAZolam 0.25 MG Tab PO PRN (08:58)
[2016-08-03] MEDS: Ciprofloxacin 500 MG Tab PO SCH (08:58)
[2016-08-03] MEDS: Clopidogrel 75 MG Tab PO SCH (08:58)
[2016-08-03] MEDS: Multivitamin Tab PO SCH (08:58)
[2016-08-03] MEDS: Metoprolol Tartrate 25 MG Tab PO SCH (08:58)
[2016-08-03] MEDS: Ferrous Sulfate 325 MG Tab PO SCH (08:58)
[2016-08-03] MEDS: FLUoxetine 10 MG Cap PO SCH (08:58)
[2016-08-03] MEDS: Aspirin 81 MG Tab.EC PO SCH (08:59)
[2016-08-03] MEDS: amLODIPine 10 MG Tab PO SCH (08:59)
[2016-08-03] MEDS: Cranberry 500 MG Cap PO SCH (08:59)
[2016-08-03] MEDS: Insulin Aspart 100 Units/ML 3 ML Pen SUBCUT SCH (08:59)
[2016-08-03 09:05] VITALS: BP 150/58
[2016-08-03] MEDS: [UNRECOGNIZED DRUG - OTHER] PO SCH (09:06)
[2016-08-03] MEDS: METHYLCELLULOSE PO SCH (09:06)
[2016-08-03] MEDS: Polyethylene Glycol 3350 Powder 17 GM Packet PO SCH (09:07)
--- NOTE | 2016-09-01 01:57 | DISCH ---
DISCHARGE DATE: 08/03/2016 HOSPITAL COURSE: Elisabeth Mcintosh is an 89-year-old female, was in swing bed for an appropriate length of time. She had a complicated fall. CT revealed facial contusions and a cervical fracture. Rehab was actively involved. Ambulation skills and pain was controlled. At the time of discharge, she was comfortable and ready to go. DISCHARGE MEDS: Please see med recon list. /[id number] LOLA/CARLOTA
== END 2016-08-03 10:37 | disposition home or self-care (01) | DRG 552 ==
LOC: FB.MS 10:41
PROVIDERS: ADMIT Family Medicine; ATTEND Family Medicine
DX: S12.100A Unspecified displaced fracture of second cervical vertebra, initial encounter for closed fracture (principal); E87.1 Hypo-osmolality and hyponatremia; S06.0X0A Concussion without loss of consciousness, initial encounter; S00.83XA Contusion of other part of head, initial encounter; S00.93XA Contusion of unspecified part of head, initial encounter; I10 Essential (primary) hypertension; R27.8 Other lack of coordination; W19.XXXA Unspecified fall, initial encounter; Z79.82 Long term (current) use of aspirin; Z79.4 Long term (current) use of insulin; Z79.899 Other long term (current) drug therapy
CPT/HCPCS: 36415; 81001; 82962; 83036; 87086; 97110-GO; 97110-GP; 97116-GP; 97530-GO; 97530-GO-KX; 97530-GP; 97535-GO; 97542-GO; A9270-GY

== ENCOUNTER 2017-01-10 14:10 | Emergency (ER) | payer MEDICARE, BC ==
[2017-01-10] MEDS ORDERED: Albuterol/Ipratropium 3.0-0.5 MG/3 ML Neb Soln NEB ONE (14:23)
--- NOTE | 2017-01-10 14:43 | EDM.PDOC ---
ED HPI GENERAL MEDICAL PROBLEM - General Stated Complaint: BLOOD SUGAR Time Seen by Provider: 01/10/17 14:10 Source of Information: Reports: Patient, EMS History Limitations: Reports: Physical Impairment - History of Present Illness INITIAL COMMENTS - FREE TEXT/NARRATIVE: 89 y.o.w.f came by ems to the ed, form a fpc due to fever and gen body discomfort. Pt is a poor historian, stating, she does not know why she is was bought to the ed and wanted to go back. No family was present at the time. Temp was 38.6 BP 121/59 Pulse ox 95 RR 18 Onset: Today Onset Date: 01/10/17 Onset Time: 09:00 Duration: Hour(s): Location: Reports: Generalized Quality: Reports: Other (not feeling well, temp) Improves with: Reports: Rest Worsens with: Reports: Movement Context: Reports: Other (not clear) Associated Symptoms: Reports: Fever/Chills, Loss of Appetite, Weakness - Related Data Allergies Allergy/AdvReac Type Severity Reaction Status Date / Time No Known Allergies Allergy Verified 01/10/17 16:51 Home Meds: Home Meds ALPRAZolam [Alprazolam] 0.25 mg PO BID PRN 11/04/15 [History] Aspirin [Ecotrin] 81 mg PO DAILY 11/04/15 [History] Clopidogrel Bisulfate [Clopidogrel] 75 mg PO DAILY 11/04/15 [History] Cranberry Conc/Ascorbic Acid [Cranberry Plus Vitamin C Sftgl] 300 mg PO DAILY [History] Metoprolol Tartrate 25 mg PO BID 11/04/15 [History] FLUoxetine HCl [Fluoxetine] 10 mg PO DAILY 07/19/16 [History] Ferrous Sulfate [Iron] 325 mg PO DAILY 07/19/16 [History] Methylcellulose (with Sugar) [Citrucel] 1 tbsp PO DAILY 07/19/16 [History] Multivitamin [Multi-Vitamin Daily] 1 each PO DAILY 07/19/16 [History] Nitroglycerin [Nitrostat] 0.4 mg SL Q5M PRN 07/19/16 [History] Polyethylene Glycol 3350 [Miralax] 17 gm PO DAILY 07/19/16 [History] Magnesium Hydroxide [Milk of Magnesia] 15 ml PO DAILY PRN 07/20/16 [History] Menthol [Ice Blue Gel] 1 applic TOP ASDIRECTED 07/20/16 [History] Acetaminophen [Tylenol Extra Strength] 500 mg PO Q6H #0 tablet 07/24/16 [Rx] Insulin Glarg,Human.Rec.Analog [Lantus Solostar] 30 unit SUBCUT BEDTIME #5 pen 08/01/16 [Rx] Lisinopril [Prinivil] 40 mg PO DAILY #30 tablet 08/01/16 [Rx] Omeprazole 20 mg PO DAILY@0600 #30 cap.cr 08/01/16 [Rx] amLODIPine [Norvasc] 10 mg PO DAILY #30 tablet 08/01/16 [Rx] traMADol [Ultram] 50 mg PO TID PRN #30 tablet 08/01/16 [Rx] Calcium Carbonate [Calcium] 500 mg PO BID 01/10/17 [History] Cholecalciferol (Vitamin D3) [Vitamin D3] 1,000 mg PO DAILY 01/10/17 [History] Simethicone [Gas Relief] 125 mg PO BID 01/10/17 [History] Sulfamethoxazole/Trimethoprim [Bactrim Ds Tablet] 1 tab PO BID MDD FOR 7 DAYS [History] Past Medical History HEENT History: Reports: Hard of Hearing, Impaired Vision Cardiovascular History: Reports: High Cholesterol, Hypertension, [place], Stents Gastrointestinal History: Reports: Chronic Constipation Genitourinary History: Reports: UTI, Recurrent 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: Musculoskeletal History: Reports: Osteoarthritis Endocrine/Metabolic History: Reports: Diabetes, Type II - Infectious Disease History Infectious Disease History: Reports: Chicken Pox, Measles, Mumps - Past Surgical History Cardiovascular Surgical History: Reports: Carotid Stents Social & Family History - Family History Family Medical History: Noncontributory - Tobacco Use Smoking Status *Q: Never Smoker Years of Tobacco use: 25 Second Hand Smoke Exposure: No - Caffeine Use Caffeine Use: Reports: Coffee - Recreational Drug Use Recreational Drug Use: No ED ROS GENERAL - Review of Systems Review Of Systems: Unable To Obtain ED EXAM, GENERAL - Physical Exam Exam: See Below Exam Limited By: Physical Impairment General Appearance: Alert, WD/WN, Mild Distress, Obese Eye Exam: Bilateral Eye: Normal Inspection Ears: Normal External Exam Ear Exam: Bilateral Ear: Auricle Normal Nose: Normal Inspection Throat/Mouth: Normal Inspection Head: Atraumatic, Normocephalic Neck: Normal Inspection, Supple Respiratory/Chest: No Respiratory Distress, Lungs Clear, Normal Breath Sounds ( with poor insp effort) Cardiovascular: Normal Peripheral Pulses, Regular Rate, Rhythm, No Edema Peripheral Pulses: 1+: Radial (L), Radial (R) GI/Abdominal: Normal Bowel Sounds, Soft, Non-Tender (Female) Exam: Deferred Rectal (Female) Exam: Deferred Back Exam: Normal Inspection, Full Range of Motion Extremities: Normal Inspection, Normal Range of Motion Neurological: Alert, Oriented, CN II-XII Intact, Normal Cognition, Other (pt is mainly bedridden as per argiving nurse) Psychiatric: Normal Affect, Normal Mood Skin Exam: Warm, Dry, Intact Lymphatic: No Adenopathy EKG INTERPRETATION EKG Date: 01/10/17 Time: 14:35 Rhythm: NSR Rate (Beats/Min): 70 [place]: Normal P-Wave: Present QRS: Normal ST-T: Normal QT: Normal Comparison: NA - No Prior EKG Course - Vital Signs Text/Narrative:: 89 y.o.w.f came by ems to the ed, form a fpc due to fever and gen body discomfort. Pt is a poor historian, stating, she does not know why she is was bought to the ed and wanted to go back. No family was present at the time. Temp was 38.6 BP 121/59 Pulse ox 95 RR 18. Later on, Pt's daughter arrive, stating the patient had a "neck issue" in the past PE: WNWD WF with fever Labs: WBC 35.8 HGN 12.3 K 5.4 Na 126 Lactic acid 1.8 HA1C 7.0 GFR <39 Imaging: CXR: NAD, official report is pending Impression: Leucocytosis, cause not determined, fever. Tx: NS, Tylenol 4 pm: Consultation: Dr. Alan: Pt can go home and f/u with PMD Reexam: temp went up to 99.9, no cause of he fewer could not be determined, daughter arrived, insisting pt can see a specialist for her high WBC of 35.8K 5.40 apchristopher Portillo, Hospitalist, [facility]: Accepted for admission Plan: Transfere to [facility] by EMS to see a forensic medical examiner/oncologist, Pt ate prior to transfere Last Recorded V/S: Last Vital Signs Temp 37.2 C 01/10/17 18:40 Pulse 76 01/10/17 18:40 Resp 20 01/10/17 18:40 BP 131/87 01/10/17 18:40 Pulse Ox 94 L 01/10/17 18:40 - Orders/Labs/Meds Labs: Laboratory Tests 01/10/17 01/10/17 01/10/17 Range/Units 14:30 14:30 14:30 WBC 35.8 H* (4.5-12.0) X10-3/uL RBC 3.94 (3.23-5.20) x10(6)uL Hgb 12.3 (11.5-15.5) g/dL Hct 34.5 (30.0-51.3) % MCV 87.6 (80-96) fL MCH 31.2 (27.7-33.6) pg MCHC 35.6 H (32.2-35.4) g/dL RDW 13.2 (11.5-15.5) % Plt Count 294 (125-369) X10(3)uL MPV 7.2 L (7.4-10.4) fL Add Manual Diff Yes Neutrophils % (Manual) 89 H (46-82) % Band Neutrophils % 3 (0-6) % Lymphocytes % (Manual) 5 L (13-37) % Monocytes % (Manual) 4 (4-12) % Toxic Granulation Few H (NOT SEEN) Sodium 126 L (135-145) mmol/L Potassium 5.4 H D (3.5-5.3) mmol/L Chloride 97 L (100-110) mmol/L Carbon Dioxide 22 L (23-29) mmol/L BUN 22 D (8-23) mg/dL Creatinine 1.3 (0.6-1.3) mg/dL Est Cr Clr Drug Dosing TNP Estimated GFR (MDRD) 39 L (>60) BUN/Creatinine Ratio 16.9 (9-20) Glucose 171 H (80-116) mg/dL Hemoglobin A1c 7.0 H (4.0-6.0) % Lactic Acid (0.5-2.2) mmol/L Calcium 8.9 (8.6-10.2) mg/dL Troponin I (0.02-0.06) NG/ML Urine Color (YELLOW) Urine Appearance (CLEAR) Urine pH (5.0-6.5) Ur Specific [place] (1.010-1.025) Urine Protein (NEGATIVE) mg/dL Urine Glucose (UA) (NEGATIVE) mg/dL Urine Ketones (NEGATIVE) mg/dL Urine Occult Blood (NEGATIVE) Urine Nitrite (NEGATIVE) Urine Bilirubin (NEGATIVE) Urine Urobilinogen (NEGATIVE) mg/dL Ur Leukocyte Esterase (NEGATIVE) Urine RBC (0) Urine WBC (0) Ur Squamous Epith Cells (NS,R,O) Urine Bacteria (NS) 01/10/17 01/10/17 01/10/17 Range/Units 14:45 14:45 15:50 WBC (4.5-12.0) X10-3/uL RBC (3.23-5.20) x10(6)uL Hgb (11.5-15.5) g/dL Hct (30.0-51.3) % MCV (80-96) fL MCH (27.7-33.6) pg MCHC (32.2-35.4) g/dL RDW (11.5-15.5) % Plt Count (125-369) X10(3)uL MPV (7.4-10.4) fL Add Manual Diff Neutrophils % (Manual) (46-82) % Band Neutrophils % (0-6) % Lymphocytes % (Manual) (13-37) % Monocytes % (Manual) (4-12) % Toxic Granulation (NOT SEEN) Sodium (135-145) mmol/L Potassium (3.5-5.3) mmol/L Chloride (100-110) mmol/L Carbon Dioxide (23-29) mmol/L BUN (8-23) mg/dL Creatinine (0.6-1.3) mg/dL Est Cr Clr Drug Dosing Estimated GFR (MDRD) (>60) BUN/Creatinine Ratio (9-20) Glucose (80-116) mg/dL Hemoglobin A1c (4.0-6.0) % Lactic Acid 1.8 (0.5-2.2) mmol/L Calcium (8.6-10.2) mg/dL Troponin I 0.02 (0.02-0.06) NG/ML Urine Color Yellow (YELLOW) Urine Appearance Clear (CLEAR) Urine pH 5.0 (5.0-6.5) Ur Specific [place] 1.015 (1.010-1.025) Urine Protein 100 H (NEGATIVE) mg/dL Urine Glucose (UA) Normal (NEGATIVE) mg/dL Urine Ketones Negative (NEGATIVE) mg/dL Urine Occult Blood Negative (NEGATIVE) Urine Nitrite Negative (NEGATIVE) Urine Bilirubin Negative (NEGATIVE) Urine Urobilinogen Normal (NEGATIVE) mg/dL Ur Leukocyte Esterase Negative (NEGATIVE) Urine RBC 0-5 (0) Urine WBC 0-5 (0) Ur Squamous Epith Cells Occasional (NS,R,O) Urine Bacteria Rare H (NS) Meds: Medications Discontinued Medications Generic Name Dose Route Start Last Admin Trade Name Freq PRN Reason Stop Dose Admin Acetaminophen 650 mg 01/10/17 17:25 01/10/17 17:27 Tylenol PO 01/10/17 17:26 Not Given ONETIME ONE Acetaminophen 650 mg 01/10/17 17:27 01/10/17 17:37 Tylenol PO 01/10/17 17:28 650 mg NOW ONE Administration Albuterol/Ipratropium 3 ml 01/10/17 14:23 01/10/17 14:56 Duoneb 3.0-0.5 Mg/3 Ml NEB 01/10/17 14:24 3 ml ONETIME ONE Administration Sodium Polystyrene Sulfonate 15 gm 01/10/17 16:40 01/10/17 16:57 Kayexalate PO 01/10/17 16:41 15 gm ONETIME ONE Administration Departure - Departure Time of Disposition: 17:12 Disposition: DC/Tfer to [facility] Reason for Transfer *Q: Other (No forensic medical examiner/oncologist) Condition: Good Clinical Impression: Hyperkalemia, Dehydration Elevated WBC count Qualifiers: Leukocytosis type: unspecified Qualified Code(s): D72.829 - Elevated white blood cell count, unspecified Instructions: Hyperkalemia, [id number], Leukocytosis Referrals: Jeffy Logan PA-C [Primary Care Provider] - Forms: ED Department Discharge Additional Instructions: Please increase ater intake, please f/u with your PMD to evaluate the High WBC, please recheck the potassium level in 3 days. Please come back to the ed if your symptoms get worse acutely.
--- NOTE | 2017-01-10 15:10 | CR ---
INDICATION: Short of breath. CHEST: AP upright portable view of the chest 01/10/2017 was compared with 03/27 and revealed an appearance of slightly increased prominence of the heart size and especially the left ventricular contour. The aorta is tortuous and calcified in the arch area. No definite active infiltrate or effusion was identified. The pulmonary vasculature does not appear grossly engorged to suggest CHF. Degenerative changes and impingement are suggested at the right shoulder joint. Postsurgical left humerus is noted with intramedullary bernice in place. IMPRESSION: 1. No definite acute process. 2. 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 MTDD
[2017-01-10] MEDS ORDERED: Sodium Polystyrene Sulfonate 15 GM/60 ML Susp 60 ML Bot PO ONE (16:40)
[2017-01-10] MEDS ORDERED: Acetaminophen Soln 650 MG/20.3 ML UD Cup PO ONE (17:25)
[2017-01-10] MEDS ORDERED: Acetaminophen 325 MG Tab PO ONE (17:27)
[2017-01-10 18:46] VITALS: BP 131/87
== END 2017-01-10 18:40 | disposition critical access hospital (66) ==
LOC: FB.ED 14:10
DX: D72.829 Elevated white blood cell count, unspecified (principal); E87.5 Hyperkalemia; E86.0 Dehydration; Z79.82 Long term (current) use of aspirin; I10 Essential (primary) hypertension; E11.9 Type 2 diabetes mellitus without complications; Z79.899 Other long term (current) drug therapy; Z79.4 Long term (current) use of insulin
CPT/HCPCS: 36415; 71010; 80048; 81001; 83036; 83605; 84484; 85025; 93005; 94640; 99285; A9270; J7620; 99284